=== PATIENT | male | born 1960 | race Caucasian/White ===

== ENCOUNTER 2020-08-25 17:55 | Inpatient (IN) | payer MEDICARE, MEDICAID, SELFPAY ==
[2020-08-25] VITALS (7 sets, daily range): BP systolic 156–169; BP diastolic 69–100; PULSE 79–112; RESP 16–22; TEMP 36.4–36.8; O2SAT 96–100; BMI 29.7
--- NOTE | 2020-08-25 18:10 | ED_ITS ---
HPI - Abdominal Pain General: Chief Complaint: Abdominal Pain Stated Complaint: ABD PAIN Time Seen by Provider: 08/25/20 17:57 Source: patient and EMS Mode of arrival: EMS Limitations: no limitations History of Present Illness: HPI narrative: Patient is a 60-year-old male who presents to ED today with a complaint of epigastric and left upper quadrant abdominal pain. Patient tells me he has chronic left upper quadrant abdominal pain-has had a very extensive work up for this and told it was his gallbladder. He reports a previous episode of pancreatitis in 2005 that he reports was from Seroquel use. He tells me last week he had 2 episodes of fairly severe left upper quadrant pain that resolved back down to his baseline pain without intervention. He tells me today however pain returned and was severe prompting him to seek medical evaluation. He has had one episode of non-bloody emesis this morning. He is complaining of loose steatorrhea stools. No fevers. He admittingly has been taking a large amount of Aleve over the past week for arthritis. MD elicited complaint: abdominal pain Pertinent past history: other (pancreatitis ) Onset (ago): hour(s) Pain Consistency: constant Location: Epigastric and LUQ Severity: severe Quality: stabbing and sharp Radiation: none Migration to: no migration Relieving factors: nothing Associated Symptoms: Reports diarrhea, nausea and vomiting; Denies bloating, chills, constipation, dysuria, fever(s), hematochezia, hematemesis, fecal incontinence, melena and syncope Review of Systems Const: Denies: fever(s), chills, body aches, fatigue or malaise ENMT: Denies: throat pain or odynophagia Card: Denies: chest pain, palpitations, irregular heart rhythm, edema, swelling of feet/ankles, lightheadedness, syncope, pre-syncope or dyspnea on exertion Resp: Denies: dyspnea GI: Reports: abdominal pain, nausea, vomiting, diarrhea and steatorrhea; Denies: hematemesis, constipation, bloating, fecal incontinence, pain on defecation, rectal pain, rectal swelling, hematochezia, melena or white/light colored stool : Denies: flank pain, difficulty urinating, dysuria, urinary frequency, urinary urgency or urinary hesitancy Musc: Denies: neck pain or back pain Skin/Breast: Denies: rash Neuro: Denies: headache(s) Physical Exam Const: COMMON NORMALS: no acute distress, patient oriented x3, no limitations and alert GENERAL APPEARANCE: cooperative and disheveled ORIENTATION/CONSCIOUSNESS: Yes awake, Yes oriented to person, Yes oriented to place and Yes oriented to time HENMT: COMMON NORMALS: normocephalic and atraumatic HEAD & SCALP: normocephalic and atraumatic Resp: COMMON NORMALS: normal respiratory effort and clear to auscultation bilaterally AUSCULTATION: clear to auscultation bilaterally Cardio: COMMON NORMALS: regular rate and regular rhythm RATE: regular rate RHYTHM: regular rhythm GI: COMMON NORMALS: Normal to inspection, nondistended, normoactive bowel sounds present, Soft to palpation, No hepatosplenomegaly present and no masses INSPECTION: Yes normal to inspection AUSCULTATION: Yes normoactive bowel sounds PALPATION: Yes Soft to palpation, Yes Tenderness to palpation present (GI) (epigastric/LUQ) and Yes No hepatosplenomegaly present : COMMON NORMALS: Yes no CVA tenderness BLADDER/KIDNEY EXAM: Yes no CVA tenderness Back/Pelvis: COMMON NORMALS: no CVA tenderness Extremity: COMMON NORMALS: no pedal edema Neuro: COMMON NORMALS: patient oriented x3 SENSORIUM/ORIENTATION: Yes alert, Yes oriented to person, Yes oriented to place and Yes oriented to time Skin: COMMON NORMALS: no rashes or lesions noted GENERAL SKIN EXAM: no rashes or lesions noted Course Consultations: Consultation #1: Dr. Chapman-accepts admission Vital Signs: Vital signs: Vital Signs Temperature 97.5 F L 08/25/20 17:58 Pulse Rate 89 08/25/20 20:09 Respiratory Rate 21 H 08/25/20 20:10 Blood Pressure 168/100 08/25/20 20:09 Pulse Oximetry 99 08/25/20 20:10 MDM - Abdominal Pain MDM Narrative: Medical decision making narrative: Patient was given 100mcg fentanyl in route and has had 8mg of morphine here and pain is still quite uncomfortable. He does not feel like this could be managed adequately at home. Patient does have acute pancreatitis. Lipase is 2150. No significant changes to his LFTs. No mass or pseudocyst on CT. I spoke to Dr. Chapman who will accept patient. Dr. Pack will place admit orders. Lab Data: Labs: Lab Results 08/25/20 08/25/20 08/25/20 Range/Units 18:36 18:36 18:36 WBC 18.1 H (4.0-10.0) 10^3/ uL RBC 5.67 H (4.1-5.3) 10^6/u L Hgb 15.4 (11.7-16.6) g/dL Hct 46.4 (42.0-52.0) % MCV 81.8 (80-94) fL MCH 27.2 L (28.0-34.0) pg MCHC 33.2 (30.0-36.0) g/dL RDW 12.8 (12.1-15.1) % Plt Count 315 (130-400) 10^3/c mm MPV 11.6 H (7.4-10.4) fL Neut % (Auto) 87.4 % Lymph % (Auto) 5.4 % [place] % (Auto) 5.6 % Eos % (Auto) 0.9 % Baso % (Auto) 0.3 % Neut # (Auto) 15.85 H (1.8-7.7) 10^3/u L Lymph # (Auto) 1.0 (0.8-4.8) 10^3/u L [place] # (Auto) 1.0 H (0.2-0.9) 10^3/u L Eos # (Auto) 0.2 (0.0-0.8) 10^3/u L Baso # (Auto) 0.1 (0.0-0.1) 10^3/u L Nucleated RBC % (a uto) 0 % Nucleated RBCs # 0.0 /100WBC Sodium 135 L (136-145) mmol/L Potassium 4.5 (3.5-5.1) mmol/L Chloride 100 (98-107) mmol/L Carbon Dioxide 22 (22-29) mmol/L Anion Gap 17.5 (5-19) BUN 16 (6-20) mg/dL Creatinine 0.7 (0.7-1.2) mg/dL GFR Calculation 115.4 (90-130) mL/min Glucose 237 H (65-115) mg/dL Calculated Osmolal ity 289 (285-295) mOsm/k g Calcium 9.6 (8.5-10.5) mg/dL Total Bilirubin 0.6 (0.15-1.2) mg/dL AST 35 (0-40) U/L ALT 42 H (0-41) U/L Alkaline Phosphata se 68 (40-130) IU/L Total Protein 7.7 (6.6-8.7) g/dL Albumin 4.8 (3.5-5.2) g/dL Globulin 2.9 (1.3-4.6) g/dL Lipase 2150 H (13-60) U/L Urine Color Yellow (Yellow) Urine Appearance Clear (CLEAR) Urine pH 5 (5-7) Ur Specific Gravit y 1.025 (1.005-1.030) Urine Protein Trace (Negative) Urine Glucose (UA) 4+ H (Normal) Urine Ketones 2+ H (Negative) Urine Blood Neg (Negative) Urine Nitrate Negative (Negative) Urine Bilirubin 1+ H (Negative) Urine Urobilinogen 1 H (Negative) mg/dL Ur Leukocyte [place] ase Negative (Negative) Urine RBC 0-4 H (0-2) /hpf Urine WBC 0-4 H (0-5) /hpf Ur Squamous Epith Cells 0-4 H (0-5) /hpf Amorphous Sediment Not Reportable Urine Bacteria Trace (NONE) /hpf Hyaline Casts 0-4 H /lpf Urine Mucus 1+ /hpf Imaging Data ^: CT Abd/Pel: Radiologist's impression: [address] [address] [address] Scan Report Signed Patient: FIDEL RENDON Unit #: [id number] : 1960 Age/Sex: 60 / M ADM Date: Loc: ER Room/Bed: Attending Dr: Ordering Provider/Ordering MD: Julia Sims Date of Service: 08/25/20 Procedure(s): CT abdomen pelvis w con* [id number] Accession Number(s): [id number] Report Number: [id number] PROCEDURE INFORMATION: Exam: CT Abdomen And Pelvis With Contrast Exam date and time: 08/25/2020 7:25 PM Age: 60 years old Clinical indication: Abdominal pain; Additional info: Upper abdominal pain/pancreatitis x 2 days TECHNIQUE: Imaging protocol: Computed tomography of the abdomen and pelvis with contrast. Radiation optimization: All CT scans at this facility use at least one of these dose optimization techniques: automated exposure control; mA and/or kV adjustment per patient size (includes targeted exams where dose is matched to clinical indication); or iterative reconstruction. Contrast material: OMNI 300; Contrast volume: 95 ml; Contrast route: INTRAVENOUS (IV); COMPARISON: No relevant prior studies available. RADIATION DOSE METRICS: Total DLP (mGy-cm): 1758.94 FINDINGS: Liver: Mild hepatic steatosis. No focal liver mass. Gallbladder and bile ducts: Normal. No calcified stones. No ductal dilation. Pancreas: Free fluid around the pancreas. No loculated pancreatic pseudocyst. No pancreatic ductal dilation. No focal pancreatic mass. Spleen: Normal. No splenomegaly. Adrenal glands: Normal. No mass. Kidneys and ureters: Multiple small incidental bilateral renal simple cortical cyst. Negative for hydronephrosis. Stomach and bowel: Unremarkable. No obstruction. No mucosal thickening. Appendix: No evidence of appendicitis. Intraperitoneal space: Unremarkable. No free air. No significant fluid collection. Vasculature: Unremarkable. No abdominal aortic aneurysm. Lymph nodes: Unremarkable. No enlarged lymph nodes. Urinary bladder: Unremarkable as visualized. Reproductive: Mild prostate gland enlargement. Bones/joints: Bilateral L5 pars defects. Grade 1 L5-S1 spondylolisthesis. Severe L5-S1 disc disease. No vertebral body height loss. Soft tissues: Unremarkable. CT/CT abdomen pelvis w con* [id number] IMPRESSION: Positive for acute pancreatitis changes. COMMENTS: Consistent with the [place] [employer]'s Incidental Findings Committee white paper (J Am Lesley Radiol 2018): Any incidental renal lesion less than 1 cm or classified as too small to characterize, or any incidental cystic renal lesion characterized as simple-appearing, is likely benign. No follow-up imaging is recommended for these lesions per consensus recommendations based on imaging criteria. Radiation Dose CTDIVOL = (mGy): DLP = 1758.94 (mGy-cm) Dictated By: Blas Duggan Signed By: Blas Duggan Signed Date/Time: 08/25/201956 DD/ 55 Discharge Plan Discharge Patient Disposition: Admitted As Inpatient Clinical Impression: Acute pancreatitis Condition: Stable Coding Level of Care Code ED Manager Lean for Chg Fwd Exam Comprehensive
[2020-08-25] MEDS: lidocaine 2% viscous 15 ML, aluminum-mag hydrox-simethicon 30 ML, sucralfate oral liq 1 GM PO (18:35)
[2020-08-25] MEDS: morphine 4 mg/mL SDV 1 mL IVP ×2 (18:35→20:10)
[2020-08-25 18:47] LABS: Basophils # 0.1 10^3/uL (0.0-0.1); Basophils % 0.3 %; Eosinophils # 0.2 10^3/uL (0.0-0.8); Eosinophils % 0.9 %; Hematocrit 46.4 % (42.0-52.0); Hemoglobin 15.4 g/dL (11.7-16.6); Lymphocytes % 5.4 %; Mean Corpuscular HGB Conc 33.2 g/dL (30.0-36.0); Mean Corpuscular Hemoglobin 27.2 pg (28.0-34.0); Mean Corpuscular Volume 81.8 fL (80-94); Mean Platelet Volume 11.6 fL (7.4-10.4); Monocytes % 5.6 %; Neutrophils # 15.85 10^3/uL (1.8-7.7); Neutrophils % 87.4 %; Nucleated Red Blood Cells % 0 %; Platelet Count 315 10^3/cmm (130-400); Red Blood Count 5.67 10^6/uL (4.1-5.3); Red Cell Distribution Width 12.8 % (12.1-15.1); White Blood Count 18.1 10^3/uL (4.0-10.0)
[2020-08-25 19:07] LABS: Alanine Aminotransferase 42 U/L (0-41); Albumin Level 4.8 g/dL (3.5-5.2); Alkaline Phosphatase 68 IU/L (40-130); Blood Urea Nitrogen 16 mg/dL (6-20); Calcium 9.6 mg/dL (8.5-10.5); Carbon Dioxide 22 mmol/L (22-29); Chloride 100 mmol/L (98-107); Globulin 2.9 g/dL (1.3-4.6); Glomerular Filtration Rate 115.4 mL/min (90-130); Glucose 237 mg/dL (65-115); Osmolality Calculated 289 mOsm/kg (285-295); Sodium 135 mmol/L (136-145); Total Bilirubin 0.6 mg/dL (0.15-1.2); Total Protein 7.7 g/dL (6.6-8.7)
[2020-08-25 19:10] LABS: Anion Gap 17.5 (5-19); Potassium 4.5 mmol/L (3.5-5.1)
--- NOTE | 2020-08-25 19:10 | PC.NURSE ---
report received from MAXWELL Alcazar and care transferred to MAXWELL Kingsley
[2020-08-25 19:11] LABS: Aspartate Amino Transferase 35 U/L (0-40)
[2020-08-25 19:16] LABS: Lipase 2150 U/L (13-60)
--- NOTE | 2020-08-25 19:23 | CTR_ITS ---
PROCEDURE INFORMATION: Exam: CT Abdomen And Pelvis With Contrast Exam date and time: 08/25/2020 7:25 PM Age: 60 years old Clinical indication: Abdominal pain; Additional info: Upper abdominal pain/pancreatitis x 2 days TECHNIQUE: Imaging protocol: Computed tomography of the abdomen and pelvis with contrast. Radiation optimization: All CT scans at this facility use at least one of these dose optimization techniques: automated exposure control; mA and/or kV adjustment per patient size (includes targeted exams where dose is matched to clinical indication); or iterative reconstruction. Contrast material: OMNI 300; Contrast volume: 95 ml; Contrast route: INTRAVENOUS (IV); COMPARISON: No relevant prior studies available. RADIATION DOSE METRICS: Total DLP (mGy-cm): 1758.94 FINDINGS: Liver: Mild hepatic steatosis. No focal liver mass. Gallbladder and bile ducts: Normal. No calcified stones. No ductal dilation. Pancreas: Free fluid around the pancreas. No loculated pancreatic pseudocyst. No pancreatic ductal dilation. No focal pancreatic mass. Spleen: Normal. No splenomegaly. Adrenal glands: Normal. No mass. Kidneys and ureters: Multiple small incidental bilateral renal simple cortical cyst. Negative for hydronephrosis. Stomach and bowel: Unremarkable. No obstruction. No mucosal thickening. Appendix: No evidence of appendicitis. Intraperitoneal space: Unremarkable. No free air. No significant fluid collection. Vasculature: Unremarkable. No abdominal aortic aneurysm. Lymph nodes: Unremarkable. No enlarged lymph nodes. Urinary bladder: Unremarkable as visualized. Reproductive: Mild prostate gland enlargement. Bones/joints: Bilateral L5 pars defects. Grade 1 L5-S1 spondylolisthesis. Severe L5-S1 disc disease. No vertebral body height loss. Soft tissues: Unremarkable. CT/CT abdomen pelvis w con* [id number] IMPRESSION: Positive for acute pancreatitis changes. COMMENTS: Consistent with the [employer]'s Incidental Findings Committee white paper (J Am Lesley Radiol 2018): Any incidental renal lesion less than 1 cm or classified as too small to characterize, or any incidental cystic renal lesion characterized as simple-appearing, is likely benign. No follow-up imaging is recommended for these lesions per consensus recommendations based on imaging criteria. Radiation Dose CTDIVOL = (mGy): DLP = 1758.94 (mGy-cm)
[2020-08-25 19:27] LABS: Add Urine Microscopic? YES; Bilirubin Urine 1+ (Negative); Blood Urine Neg (Negative); Glucose Urine UA 4+ (Normal); Ketones Urine 2+ (Negative); Leukocyte Esterase Urine Negative (Negative); Nitrate Urine Negative (Negative); Protein Urine Trace (Negative); RBC Urine 0-4 /hpf (0-2); Specific Gravity, Urine 1.025 (1.005-1.030); Squamous Epithelial Cell Urine 0-4 /hpf (0-5); Urine Appearance Clear (CLEAR); Urine Color Yellow (Yellow); Urobilinogen Urine 1 mg/dL (Negative); WBC Urine 0-4 /hpf (0-5); pH Urine 5 (5-7)
[2020-08-25 19:28] LABS: Bacteria Urine TRACE /hpf; Hyaline Casts Urine 0-4 /lpf; Mucus Urine 1+ /hpf
[2020-08-25] MEDS: iohexol 300 mg/mL 100 mL Btl IV (19:38)
--- NOTE | 2020-08-25 21:06 | PM.HP ---
Providers/Chief Complaint Chief Complaint: ABD PAIN History of Present Illness FIDEL RENDON is a 60 year old male with past medical history of diabetes, hypertension, COPD, BPH, dyslipidemia who presents with complaints of left upper quadrant and epigastric abdominal pain which started 2 to 3 days ago initially mild, progressively got worse and currently is severe. Constant. No modifying factors. Reports similar in the past. In 2009 he was diagnosed with acute pancreatitis when presented with similar symptoms. He denies any new medications recently. He denies alcohol. He reports that his diabetes control has improved recently. Reports nausea and one episode of vomiting. No hematemesis. Denies rectal blood. He reports that his stool is kind of oily. Denies fever or chills. His temperature was about 98 earlier today. Reports chronic cough and wheezes. No shortness of breath or mucus production. No chest pain. Review of Systems General: Reports: 10 or more systems reviewed and unremarkable except in HPI and below Medications/Allergies Home Medications Medication Instructions Recorded Confirmed Last Taken Type albuterol sulfate [Ventolin HFA] See Rx Instructions .ROUTE .COMPLEX 08/25/20 08/25/20 Unknown History atorvastatin 40 mg PO DAILY 08/25/20 08/25/20 08/25/20 History baclofen 20 mg PO TID PRN 08/25/20 08/25/20 08/25/20 History budesonide-formoterol [Symbicort] See Rx Instructions .ROUTE .COMPLEX 08/25/20 08/25/20 Unknown History buspirone 15 mg PO BID 08/25/20 08/25/20 08/25/20 History diclofenac sodium 75 mg PO BID 08/25/20 08/25/20 08/25/20 History fenofibrate nanocrystallized 145 mg PO DAILY 08/25/20 08/25/20 08/25/20 History gabapentin 400 mg PO BID 08/25/20 08/25/20 08/25/20 History glipizide 5 mg PO TID 08/25/20 08/25/20 08/25/20 History metformin 500 mg PO BID 08/25/20 08/25/20 08/25/20 History mirtazapine 7.5 mg PO DAILY 08/25/20 08/25/20 08/25/20 History omeprazole 20 mg PO DAILY 08/25/20 08/25/20 08/25/20 History prazosin 2 mg PO DAILY 08/25/20 08/25/20 08/25/20 History prazosin 10 mg PO DAILY 08/25/20 08/25/20 08/25/20 History ramelteon 8 mg PO DAILY 08/25/20 08/25/20 08/25/20 History tamsulosin 0.4 mg PO DAILY 08/25/20 08/25/20 08/24/20 History Allergies Allergy/AdvReac Type Severity Reaction Status Date / Time No Known Allergies Allergy Verified 08/25/20 18:07 Vitals/I&O/Wt Last Vital Signs Temp 97.5 F L 08/25/20 17:58 Pulse 89 08/25/20 20:09 Resp 21 H 08/25/20 20:10 BP 168/100 08/25/20 20:09 Pulse Ox 99 08/25/20 20:10 Weight last 48 hrs Weight 91.172 kg Physical Exam Narrative: EXAM NARRATIVE: Awake alert oriented. In moderate distress secondary to abdominal pain. Skin is warm and dry. Dry mucous membranes Eyes PERRL, extraocular muscle intact. No icterus Neck supple. No JVD Normal speech Lungs. Bilateral coarse breath sounds and wheezes. No crackles. No respiratory distress Heart S1, S2, regular Abdomen soft, tender in the left upper quadrant without rebound bowel sounds are present no guarding. Extremities no edema cyanosis or calf tenderness bilaterally Neuro examination is nonfocal. Data : 08/25/20 18:36 08/25/20 18:36 Other Labs: Laboratory Results WBC 18.1 10^3/uL (4.0-10.0) H 08/25/20 18:36 RBC 5.67 10^6/uL (4.1-5.3) H 08/25/20 18:36 Hgb 15.4 g/dL (11.7-16.6) 08/25/20 18:36 Hct 46.4 % (42.0-52.0) 08/25/20 18:36 MCV 81.8 fL (80-94) 08/25/20 18:36 MCH 27.2 pg (28.0-34.0) L 08/25/20 18:36 MCHC 33.2 g/dL (30.0-36.0) 08/25/20 18:36 RDW 12.8 % (12.1-15.1) 08/25/20 18:36 Plt Count 315 10^3/cmm (130-400) 08/25/20 18:36 MPV 11.6 fL (7.4-10.4) H 08/25/20 18:36 Neut % (Auto) 87.4 % 08/25/20 18:36 Lymph % (Auto) 5.4 % 08/25/20 18:36 [place] % (Auto) 5.6 % 08/25/20 18:36 Eos % (Auto) 0.9 % 08/25/20 18:36 Baso % (Auto) 0.3 % 08/25/20 18:36 Neut # (Auto) 15.85 10^3/uL (1.8-7.7) H 08/25/20 18:36 Lymph # (Auto) 1.0 10^3/uL (0.8-4.8) 08/25/20 18:36 [place] # (Auto) 1.0 10^3/uL (0.2-0.9) H 08/25/20 18:36 Eos # (Auto) 0.2 10^3/uL (0.0-0.8) 08/25/20 18:36 Baso # (Auto) 0.1 10^3/uL (0.0-0.1) 08/25/20 18:36 Nucleated RBC % (auto) 0 % 08/25/20 18:36 Nucleated RBCs # 0.0 /100WBC 08/25/20 18:36 Sodium 135 mmol/L (136-145) L 08/25/20 18:36 Potassium 4.5 mmol/L (3.5-5.1) 08/25/20 18:36 Chloride 100 mmol/L (98-107) 08/25/20 18:36 Carbon Dioxide 22 mmol/L (22-29) 08/25/20 18:36 Anion Gap 17.5 (5-19) 08/25/20 18:36 BUN 16 mg/dL (6-20) 08/25/20 18:36 Creatinine 0.7 mg/dL (0.7-1.2) 08/25/20 18:36 GFR Calculation 115.4 mL/min (90-130) 08/25/20 18:36 Glucose 237 mg/dL (65-115) H 08/25/20 18:36 Calculated Osmolality 289 mOsm/kg (285-295) 08/25/20 18:36 Calcium 9.6 mg/dL (8.5-10.5) 08/25/20 18:36 Total Bilirubin 0.6 mg/dL (0.15-1.2) 08/25/20 18:36 AST 35 U/L (0-40) 08/25/20 18:36 ALT 42 U/L (0-41) H 08/25/20 18:36 Alkaline Phosphatase 68 IU/L (40-130) 08/25/20 18:36 Total Protein 7.7 g/dL (6.6-8.7) 08/25/20 18:36 Albumin 4.8 g/dL (3.5-5.2) 08/25/20 18:36 Globulin 2.9 g/dL (1.3-4.6) 08/25/20 18:36 Lipase 2150 U/L (13-60) H 08/25/20 18:36 Urine Color Yellow (Yellow) 08/25/20 18:36 Urine Appearance Clear (CLEAR) 08/25/20 18:36 Urine pH 5 (5-7) 08/25/20 18:36 Ur Specific [place] 1.025 (1.005-1.030) 08/25/20 18:36 Urine Protein Trace (Negative) 08/25/20 18:36 Urine Glucose (UA) 4+ (Normal) H 08/25/20 18:36 Urine Ketones 2+ (Negative) H 08/25/20 18:36 Urine Blood Neg (Negative) 08/25/20 18:36 Urine Nitrate Negative (Negative) 08/25/20 18:36 Urine Bilirubin 1+ (Negative) H 08/25/20 18:36 Urine Urobilinogen 1 mg/dL (Negative) H 08/25/20 18:36 Ur Leukocyte Esterase Negative (Negative) 08/25/20 18:36 Urine RBC 0-4 /hpf (0-2) H 08/25/20 18:36 Urine WBC 0-4 /hpf (0-5) H 08/25/20 18:36 Ur Squamous Epith Cells 0-4 /hpf (0-5) H 08/25/20 18:36 Amorphous Sediment Not Reportable 08/25/20 18:36 Urine Bacteria Trace /hpf (NONE) 08/25/20 18:36 Hyaline Casts 0-4 /lpf H 08/25/20 18:36 Urine Mucus 1+ /hpf 08/25/20 18:36 Impressions Abdomen/Pelvis CT 08/25/20 19:23 IMPRESSION: Positive for acute pancreatitis changes. COMMENTS: Consistent with the [place] [employer]'s Incidental Findings Committee white paper (J Am Lesley Radiol 2018): Any incidental renal lesion less than 1 cm or classified as too small to characterize, or any incidental cystic renal lesion characterized as simple-appearing, is likely benign. No follow-up imaging is recommended for these lesions per consensus recommendations based on imaging criteria. Radiation Dose CTDIVOL = (mGy): DLP = 1758.94 (mGy-cm) A&P Additional A&P Information Acute pancreatitis. Does not seem to be related to gallbladder disease. Normal LFTs and normal CT appearance of the biliary system. Calcium was normal. Denies alcohol. Could be hypertriglyceridemia. We will check his fasting lipids in the morning. He will be n.p.o., will receive IV fluids, pain medications. Will monitor and replace electrolytes. We will monitor his labs including lipase. Leukocytosis. Most likely related to acute pancreatitis and associated inflammatory response. A febrile. We will check his procalcitonin in the morning. No antibiotics at this time. Hypertension. Will order as needed labetalol. We will resume his home medications when the med rec is complete. Diabetes. Since he is n.p.o. I will cover him with insulin sliding scale. We will hold his home oral medications. DVT prophylaxis. High risk for DVT. Lovenox. CODE STATUS. He wants to be full code. The plan of care was discussed with the patient. He verbalized understanding and agreement. Attestations Medical Necessity Statement*: observation Coding Level of Care Code Acute Inventory Management Specialist for Toño Adkins
[2020-08-25 21:13] LABS: Glucose Point of Care 226 mg/dL (70-110)
[2020-08-25] MEDS: enoxaparin 40 mg/0.4 mL Syringe SUBCUT (21:27)
[2020-08-25] MEDS: famotidine 20 mg/2 mL INJ IVP (21:36)
[2020-08-25] MEDS: lactated ringers 1,000 ML 150 ML IV (22:13)
[2020-08-26] VITALS (9 sets, daily range): BP systolic 132–164; BP diastolic 69–95; PULSE 101–115; RESP 17–18; TEMP 36.6–37.3; O2SAT 95–97
[2020-08-26] MEDS: ondansetron 2 mg/ML SDV 2 mL 4 MG IVP (00:38)
[2020-08-26] MEDS: sodium chloride 0.9% 1,000 ML 125 ML IV (00:44)
[2020-08-26 01:15] LABS: Glucose Point of Care 185 mg/dL (70-110)
[2020-08-26] MEDS: HYDROmorphone 1 mg/mL INJ 1 mL 0.5 MG IVP ×3 (01:22→20:03)
[2020-08-26 04:16] LABS: Glucose Point of Care 214 mg/dL (70-110)
[2020-08-26] MEDS: lactated ringers 1,000 ML 150 ML IV ×2 (04:59→16:52)
[2020-08-26 06:17] LABS: Basophils % 0.2 %; Eosinophils % 0.2 %; Hematocrit 44.5 % (42.0-52.0); Hemoglobin 14.7 g/dL (11.7-16.6); Lymphocytes # 0.9 10^3/uL (0.8-4.8); Mean Corpuscular Hemoglobin 27.4 pg (28.0-34.0); Mean Corpuscular Volume 82.9 fL (80-94); Mean Platelet Volume 11.8 fL (7.4-10.4); Monocytes % 5.5 %; Neutrophils # 15.47 10^3/uL (1.8-7.7); Neutrophils % 88.7 %; Nucleated Red Blood Cells % 0 %; Platelet Count 284 10^3/cmm (130-400); Red Blood Count 5.37 10^6/uL (4.1-5.3); Red Cell Distribution Width 13.1 % (12.1-15.1); White Blood Count 17.4 10^3/uL (4.0-10.0)
[2020-08-26 07:00] LABS: Alanine Aminotransferase 32 U/L (0-41); Albumin Level 4.1 g/dL (3.5-5.2); Alkaline Phosphatase 58 IU/L (40-130); Anion Gap 18.2 (5-19); Aspartate Amino Transferase 26 U/L (0-40); Blood Urea Nitrogen 16 mg/dL (6-20); Calcium 8.6 mg/dL (8.5-10.5); Carbon Dioxide 19 mmol/L (22-29); Chloride 98 mmol/L (98-107); Cholesterol 117 mg/dL (0-200); Globulin 2.4 g/dL (1.3-4.6); Glomerular Filtration Rate 115.4 mL/min (90-130); Glucose 181 mg/dL (65-115); HDL Cholesterol 39 mg/dL (60-100); LDL Cholesterol Calculated 56 mg/dL (50-129); LDL HDL Ratio 1.44 RATIO (0.00-3.22); Magnesium 1.5 mg/dL (1.7-2.3); Osmolality Calculated 278 mOsm/kg (285-295); Phosphorus 1.9 mg/dL (2.5-4.5); Potassium 4.2 mmol/L (3.5-5.1); Sodium 131 mmol/L (136-145); Total Bilirubin 0.6 mg/dL (0.15-1.2); Total Protein 6.5 g/dL (6.6-8.7); Triglycerides 110 mg/dL (0-150)
[2020-08-26 07:09] LABS: Lipase 946 U/L (13-60)
[2020-08-26] MEDS: famotidine 20 mg/2 mL INJ IVP ×2 (08:26→20:53)
--- NOTE | 2020-08-26 16:12 | PM.PN ---
Subjective Subjective: Interval history: Pulmonary last night. Incalculable. Examination patient lying in bed. Complaining of pain in epigastric area going to back. Of complaining of frequent cramps in his calf muscles, arch of feet. States cramping is normal for him for which he takes baclofen. Denies any headache. Complaining of one episode of nausea and vomiting. Denies feeling hungry. States he has had pancreatitis multiple times in the past. Vitals/I&O/Wt Last Vital Signs Temp 99.1 F 08/26/20 15:19 Pulse 115 H 08/26/20 15:19 Resp 18 08/26/20 15:19 BP 132/86 08/26/20 15:19 Pulse Ox 97 08/26/20 15:19 08/26/20 08/26/20 08/26/20 06:59 14:59 22:59 Intake Total 1999 Balance 1999 Weight last 48 hrs Weight 91.172 kg Physical Exam Narrative: EXAM NARRATIVE: Awake alert oriented. In moderate distress secondary to abdominal pain. Skin is warm and dry. Dry mucous membranes Eyes PERRL, extraocular muscle intact. No icterus Neck supple. No JVD Normal speech Lungs. Bilateral coarse breath sounds and wheezes. No crackles. No respiratory distress Heart S1, S2, regular Abdomen soft, tender in the left upper quadrant without rebound bowel sounds are present no guarding, bowel sounds present and sluggish. Extremities no edema cyanosis or calf tenderness bilaterally Neuro examination is nonfocal. Data : 08/26/20 04:55 08/26/20 04:55 A&P Additional A&P Information Acute pancreatitis: History of multiple pancreatitis in the past. Does not seem to be related to gallbladder disease. Normal LFTs and normal CT appearance of the biliary system. Calcium was normal. Denies alcohol. Triglyceride levels normal. Add alcohol level and drug screen to do samples from ER. Keep NPO. Continue IV fluids at 150 cc/h. Replace electrolytes as needed. Dilaudid 0.5 mg every 4 hours as needed for pain. Leukocytosis:Most likely related to acute pancreatitis and associated inflammatory response. A febrile. Pro-Maged negative. For now continue to hold off on antibiotics. Continue other chronic oral oral medications including mirtazapine, baclofen as needed, BuSpar, tamsulosin. Hypertension: Goal for goal blood pressure less than 140/90 mmHg. Continue prazosin. Diabetes. Since he is n.p.o. I will cover him with insulin sliding scale every 6 hours. We will hold his home oral medications. DVT prophylaxis. High risk for DVT. Lovenox. NPO. CODE STATUS. He wants to be full code. The plan of care was discussed with the patient. He verbalized understanding and agreement. Attestations Medical Necessity Statement*: Requires further hospitalization for management of acute pancreatitis as patient is unable to tolerate oral diet. Time Spent in Patient Care: Greater than 35 minutes (>than 50% of time spent in counselling and/or direct pt care on unit). Coding Level of Care Code Acute [employer] [place] Former for Toño Adkins
[2020-08-26 16:19] LABS: Amphetamines Screen Urine Negative (Negative); Barbiturates Screen Urine Negative (Negative); Benzodiazepines Screen Urine Negative (Negative); Cocaine Screen Urine Negative (Negative); Opiate Screen Urine Negative (Negative); PCP Screen Urine Negative (Negative); THC Screen Urine Positive (Negative)
[2020-08-26 16:30] LABS: Alcohol Level < 10 mg/dL (0-10)
[2020-08-26 16:46] LABS: Glucose Point of Care 230 mg/dL (70-110)
[2020-08-26] MEDS: magnesium sulfate premix 2 GM/50 ML PIGGYBACK IV (16:52)
[2020-08-26] MEDS: BuSPIRONE 10 mg Tablet PO (18:32)
[2020-08-26] MEDS: gabapentin 400 mg Capsule PO (18:33)
[2020-08-26 20:54] LABS: Glucose Point of Care 180 mg/dL (70-110)
[2020-08-26] MEDS: enoxaparin 40 mg/0.4 mL Syringe SUBCUT (21:42)
[2020-08-27] VITALS (10 sets, daily range): BP systolic 114–149; BP diastolic 62–85; PULSE 97–107; RESP 18–20; TEMP 36.6–38.4; O2SAT 94–98
[2020-08-27] MEDS: lactated ringers 1,000 ML 150 ML IV ×2 (00:49→18:56)
[2020-08-27 01:02] LABS: Glucose Point of Care 163 mg/dL (70-110)
[2020-08-27] MEDS: HYDROmorphone 1 mg/mL INJ 1 mL 0.5 MG IVP ×3 (01:04→18:59)
[2020-08-27 03:14] LABS: Glucose Point of Care 180 mg/dL (70-110)
[2020-08-27] MEDS: ondansetron 2 mg/ML SDV 2 mL 4 MG IVP ×2 (04:23→18:59)
[2020-08-27 06:12] LABS: Basophils # 0.1 10^3/uL (0.0-0.1); Basophils % 0.3 %; Eosinophils # 0.1 10^3/uL (0.0-0.8); Eosinophils % 0.6 %; Hematocrit 47.4 % (42.0-52.0); Hemoglobin 14.2 g/dL (11.7-16.6); Lymphocytes # 1.3 10^3/uL (0.8-4.8); Lymphocytes % 6.6 %; Mean Corpuscular Hemoglobin 27.3 pg (28.0-34.0); Mean Platelet Volume 10.9 fL (7.4-10.4); Monocytes # 1.2 10^3/uL (0.2-0.9); Monocytes % 6.3 %; Neutrophils # 16.46 10^3/uL (1.8-7.7); Neutrophils % 85.6 %; Nucleated Red Blood Cells % 0 %; Platelet Count 247 10^3/cmm (130-400); Red Blood Count 5.21 10^6/uL (4.1-5.3); Red Cell Distribution Width 13.2 % (12.1-15.1); White Blood Count 19.2 10^3/uL (4.0-10.0)
[2020-08-27 06:36] LABS: Alanine Aminotransferase 22 U/L (0-41); Albumin Level 3.7 g/dL (3.5-5.2); Alkaline Phosphatase 67 IU/L (40-130); Anion Gap 17.3 (5-19); Aspartate Amino Transferase 17 U/L (0-40); Blood Urea Nitrogen 16 mg/dL (6-20); Calcium 8.4 mg/dL (8.5-10.5); Carbon Dioxide 19 mmol/L (22-29); Chloride 101 mmol/L (98-107); Globulin 2.8 g/dL (1.3-4.6); Glomerular Filtration Rate 115.4 mL/min (90-130); Glucose 162 mg/dL (65-115); Osmolality Calculated 281 mOsm/kg (285-295); Potassium 4.3 mmol/L (3.5-5.1); Sodium 133 mmol/L (136-145); Total Bilirubin 0.6 mg/dL (0.15-1.2); Total Protein 6.5 g/dL (6.6-8.7)
[2020-08-27] MEDS: BuSPIRONE 10 mg Tablet PO ×2 (09:26→19:06)
[2020-08-27] MEDS: famotidine 20 mg/2 mL INJ IVP ×2 (09:26→21:17)
[2020-08-27] MEDS: gabapentin 400 mg Capsule PO ×2 (09:26→19:06)
[2020-08-27] MEDS: tamsulosin 0.4 mg Capsule PO (09:26)
[2020-08-27] MEDS: mirtazapine 15 mg Tablet 7.5 MG PO (09:27)
[2020-08-27 10:26] LABS: Glucose Point of Care 195 mg/dL (70-110)
--- NOTE | 2020-08-27 10:54 | PC.CHAP ---
Pastoral Care Encounter/Spiritual Assessment Type of Contact [] Declined or manager visit [] Patient/Family/Request visit [] Outpatient visit [] Follow-up visit [] Physician referral [] Code/Alert [x] Routine visit [] Staff referral [] Actively dying [] Patient sleeping [] Family support [] [] Out of room [] Palliative care [] [x] Receiving care in room [] Pre-surgical visit [] Trauma [] Long length of stay [] ICU visit [] Other: Relational/Emotional Strength [] Patient feels connected with others/family/visitors/staff [x] Distress [] Loneliness/isolation [] Abandonment Spirituality of Patient [x] Person of Arabella [] Attends Spiritism of their Arabella [x] Believes in Prayer [] Reads Bible or Yazdanism materials [] There are Spiritual issues to be addressed Rim Technician Interventions [x] Prayer [x] Active listening [x] Non-anxious presence [x] Spiritual/emotional support [] Crisis/trauma care [x] Spiritual counseling [] Bereavement support [] Provided bereavement packet [] Provided Bible/devotional materials [] Provided toy/stuffed animal, coloring book to patient or family member [] Provided Communion [] Anointing/[place] [] Salvation [x] Completed spiritual assessment [] Other: Impact on Illness or Injury [] Angry [x] Fearful [] Anxious [] Often cries [] Exhaustion [] Unable to work [] Unable to attend mandaen [] Unable to walk/stand [] Unable to read [] Unable to drive [] Unable to eat/drink [] Unable to sleep [] Unable to be with family [] Patient intubated [] Other: Summary ADB hernandez is disabled in pain and feeling better, wnats to go home soon Time spent with patient 10 mins
--- NOTE | 2020-08-27 16:29 | PM.PN ---
Subjective Subjective: Interval history: No acute events overnight. Patient states he is feeling a lot better. He is passing a lot of flatus. States pain is better. Early in the morning was started on clear liquid diet which he tolerated well. Denies any nausea, vomiting at present. States pain is better. Cramping has improved as well. Vitals/I&O/Wt Last Vital Signs Temp 98.6 F 08/27/20 12:00 Pulse 105 H 08/27/20 12:00 Resp 18 08/27/20 12:00 BP 138/79 08/27/20 12:00 Pulse Ox 98 08/27/20 12:00 08/27/20 08/27/20 08/27/20 06:59 14:59 22:59 Intake Total 1110 / 2160 1360 / 1360 Output Total 600 / 750 Balance 510 / 1410 1360 / 1360 Weight last 48 hrs Weight 91.172 kg Physical Exam Narrative: EXAM NARRATIVE: Awake alert oriented. In moderate distress secondary to abdominal pain. Skin is warm and dry. Dry mucous membranes Eyes PERRL, extraocular muscle intact. No icterus Neck supple. No JVD Normal speech Lungs. Bilateral coarse breath sounds and wheezes. No crackles. No respiratory distress Heart S1, S2, regular Abdomen soft, tender in the left upper quadrant without rebound bowel sounds are present no guarding, bowel sounds present and sluggish. Extremities no edema cyanosis or calf tenderness bilaterally Neuro examination is nonfocal. Data : 08/27/20 05:17 08/27/20 05:17 A&P Additional A&P Information Acute pancreatitis: History of multiple pancreatitis in the past. Does not seem to be related to gallbladder disease. Normal LFTs and normal CT appearance of the biliary system. Calcium was normal. Denies alcohol. Triglyceride levels normal. Alcohol level and drug screen from admission negative as well. Continue clear liquid diet for now. Advance to full liquid diet if tolerates lunch as well. Replete electrolytes as needed. Continue with Ringer lactate at 150 cc/h for now. Diet 0.5 every 6 hours as needed. Leukocytosis:Most likely related to acute pancreatitis and associated inflammatory response. A febrile. Pro-Maged negative. For now continue to hold off on antibiotics. Continue other chronic oral oral medications including mirtazapine, baclofen as needed, BuSpar, tamsulosin. Hypertension: Goal for goal blood pressure less than 140/90 mmHg. Continue prazosin. Diabetes. Since he is n.p.o. I will cover him with insulin sliding scale every 6 hours. We will hold his home oral medications. DVT prophylaxis. High risk for DVT. Lovenox. NPO. CODE STATUS. He wants to be full code. The plan of care was discussed with the patient. He verbalized understanding and agreement. Attestations Medical Necessity Statement*: Requires further hospitalization for management of acute pancreatitis as he is unable to hold anything down because of persistent nausea and vomiting. Time Spent in Patient Care: Greater than 35 minutes (>than 50% of time spent in counselling and/or direct pt care on unit). Coding Level of Care Code Acute Certified Hand Therapist for Toño Adkins
[2020-08-27 17:24] LABS: Glucose Point of Care 185 mg/dL (70-110)
[2020-08-27] MEDS: lipase-protease-amylase Capsule 1 EACH PO (19:06)
--- NOTE | 2020-08-27 19:45 | PC.NURSE ---
AT APPROX. 1755 HIDE TANNER WALKED INTO PTS ROOM TO ROUND, PT STATED I WAS GOING TO SIT DOWN AND I SLID DOWN ON MY BUTT. PT HAS SMALL SCRATCH ON LEFT ELBOW, NO OTHER S/SX OF FALL. NOTIFIED DR. LOMELI, HE REQUESTED A SET OF VITALS AND TO ACTIVATE PTS BED ALARM.
[2020-08-27 20:48] LABS: Glucose Point of Care 213 mg/dL (70-110)
[2020-08-27 21:39] LABS: Procalcitonin 0.08 ng/mL (0-0.5)
[2020-08-27] MEDS: enoxaparin 40 mg/0.4 mL Syringe SUBCUT (21:47)
[2020-08-27] MEDS: piperacillin-tazobactam 3.375 GM in sodium chloride 0.9% (plus) 50 ML IV (21:47)
[2020-08-28] VITALS (10 sets, daily range): BP systolic 135–156; BP diastolic 67–80; PULSE 86–103; RESP 16–20; TEMP 36.8–38.1; O2SAT 91–98
[2020-08-28] MEDS: lactated ringers 1,000 ML 150 ML IV ×4 (01:45→23:07)
[2020-08-28 02:30] LABS: Glucose Point of Care 189 mg/dL (70-110)
[2020-08-28] MEDS: HYDROmorphone 1 mg/mL INJ 1 mL 0.5 MG IVP ×4 (02:36→23:08)
[2020-08-28] MEDS: ondansetron 2 mg/ML SDV 2 mL 4 MG IVP ×4 (02:36→23:08)
[2020-08-28] MEDS: piperacillin-tazobactam 3.375 GM in sodium chloride 0.9% (plus) 50 ML IV ×3 (05:00→19:54)
[2020-08-28 06:03] LABS: Basophils # 0.1 10^3/uL (0.0-0.1); Basophils % 0.3 %; Eosinophils # 0.2 10^3/uL (0.0-0.8); Eosinophils % 1.4 %; Hematocrit 36.4 % (42.0-52.0); Hemoglobin 12.2 g/dL (11.7-16.6); Lymphocytes # 1.3 10^3/uL (0.8-4.8); Lymphocytes % 8.4 %; Mean Corpuscular HGB Conc 33.5 g/dL (30.0-36.0); Mean Corpuscular Hemoglobin 27.2 pg (28.0-34.0); Mean Corpuscular Volume 81.3 fL (80-94); Mean Platelet Volume 11.4 fL (7.4-10.4); Monocytes # 1.2 10^3/uL (0.2-0.9); Monocytes % 7.5 %; Neutrophils # 13.08 10^3/uL (1.8-7.7); Nucleated Red Blood Cells % 0 %; Platelet Count 230 10^3/cmm (130-400); Red Blood Count 4.48 10^6/uL (4.1-5.3); Red Cell Distribution Width 12.5 % (12.1-15.1); White Blood Count 15.9 10^3/uL (4.0-10.0)
[2020-08-28 06:20] LABS: Glucose Point of Care 145 mg/dL (70-110)
[2020-08-28 06:34] LABS: Alanine Aminotransferase 30 U/L (0-41); Albumin Level 3.6 g/dL (3.5-5.2); Alkaline Phosphatase 67 IU/L (40-130); Anion Gap 14.7 (5-19); Aspartate Amino Transferase 28 U/L (0-40); Blood Urea Nitrogen 11 mg/dL (6-20); Calcium 8.3 mg/dL (8.5-10.5); Carbon Dioxide 21 mmol/L (22-29); Chloride 100 mmol/L (98-107); Globulin 2.7 g/dL (1.3-4.6); Glomerular Filtration Rate 115.4 mL/min (90-130); Glucose 141 mg/dL (65-115); Osmolality Calculated 276 mOsm/kg (285-295); Potassium 3.7 mmol/L (3.5-5.1); Sodium 132 mmol/L (136-145); Total Bilirubin 0.8 mg/dL (0.15-1.2); Total Protein 6.3 g/dL (6.6-8.7)
[2020-08-28 06:48] LABS: Lipase 96 U/L (13-60)
[2020-08-28] MEDS: famotidine 20 mg/2 mL INJ IVP ×2 (08:51→19:51)
[2020-08-28] MEDS: gabapentin 400 mg Capsule PO ×2 (08:51→18:47)
[2020-08-28] MEDS: baclofen 10 mg Tablet 20 MG PO (08:51)
[2020-08-28] MEDS: BuSPIRONE 10 mg Tablet PO ×2 (08:51→18:47)
[2020-08-28] MEDS: mirtazapine 15 mg Tablet 7.5 MG PO (08:51)
[2020-08-28] MEDS: tamsulosin 0.4 mg Capsule PO (08:52)
--- NOTE | 2020-08-28 10:30 | PC.SOCIAL ---
Pg 2 IMM Explained to pt Pg 2 IMM. No questions voiced. Provided pt a copy. Signed, dated, & timed a copy & placed in chart.
[2020-08-28 10:46] LABS: Glucose Point of Care 241 mg/dL (70-110)
[2020-08-28 14:20] LABS: Glucose Point of Care 199 mg/dL (70-110)
--- NOTE | 2020-08-28 14:31 | P.PN_ITS ---
Subjective Subjective: Interval history: No acute events overnight. Patient has remained hemodynamically stable. He is tolerating full liquid diet well. He states he does not like the taste of full liquid diet. Overnight he spiked a fever of 101.2 Fahrenheit. Hemodynamically has remained stable. Vitals/I&O/Wt Last Vital Signs Temp 98.9 F 08/28/20 11:24 Pulse 86 08/28/20 11:24 Resp 20 H 08/28/20 11:24 BP 140/79 08/28/20 11:24 Pulse Ox 98 08/28/20 11:24 08/27/20 08/28/20 08/28/20 22:59 06:59 14:59 Intake Total 360 / 1720 1530 / 3250 1290 / 1290 Output Total 1825 / 1825 200 / 2025 1625 / 1625 Balance -1465 / -105 1330 / 1225 -335 / -335 Physical Exam Narrative: EXAM NARRATIVE: Awake alert oriented. In moderate distress secondary to abdominal pain. Skin is warm and dry. Dry mucous membranes Eyes PERRL, extraocular muscle intact. No icterus Neck supple. No JVD Normal speech Lungs. Bilateral coarse breath sounds and wheezes. No crackles. No respiratory distress Heart S1, S2, regular Abdomen soft, tender in the left upper quadrant without rebound bowel sounds are present no guarding, bowel sounds present and sluggish. Extremities no edema cyanosis or calf tenderness bilaterally Neuro examination is nonfocal. Data : 08/28/20 05:08 08/28/20 05:08 Micro: Microbiology 08/27/20 21:24 Blood Culture - Preliminary Blood SPECIMEN COLLECTED 08/27/20 21:16 Blood Culture - Preliminary Blood SPECIMEN COLLECTED Laboratory Results WBC 15.9 10^3/uL (4.0-10.0) H 08/28/20 05:08 RBC 4.48 10^6/uL (4.1-5.3) 08/28/20 05:08 Hgb 12.2 g/dL (11.7-16.6) 08/28/20 05:08 Hct 36.4 % (42.0-52.0) L 08/28/20 05:08 MCV 81.3 fL (80-94) D 08/28/20 05:08 MCH 27.2 pg (28.0-34.0) L 08/28/20 05:08 MCHC 33.5 g/dL (30.0-36.0) D 08/28/20 05:08 RDW 12.5 % (12.1-15.1) 08/28/20 05:08 Plt Count 230 10^3/cmm (130-400) 08/28/20 05:08 MPV 11.4 fL (7.4-10.4) H 08/28/20 05:08 Neut % (Auto) 82.0 % 08/28/20 05:08 Lymph % (Auto) 8.4 % 08/28/20 05:08 [place] % (Auto) 7.5 % 08/28/20 05:08 Eos % (Auto) 1.4 % 08/28/20 05:08 Baso % (Auto) 0.3 % 08/28/20 05:08 Neut # (Auto) 13.08 10^3/uL (1.8-7.7) H 08/28/20 05:08 Lymph # (Auto) 1.3 10^3/uL (0.8-4.8) 08/28/20 05:08 [place] # (Auto) 1.2 10^3/uL (0.2-0.9) H 08/28/20 05:08 Eos # (Auto) 0.2 10^3/uL (0.0-0.8) 08/28/20 05:08 Baso # (Auto) 0.1 10^3/uL (0.0-0.1) 08/28/20 05:08 Nucleated RBC % (auto) 0 % 08/28/20 05:08 Nucleated RBCs # 0.0 /100WBC 08/28/20 05:08 Sodium 132 mmol/L (136-145) L 08/28/20 05:08 Potassium 3.7 mmol/L (3.5-5.1) 08/28/20 05:08 Chloride 100 mmol/L (98-107) 08/28/20 05:08 Carbon Dioxide 21 mmol/L (22-29) L 08/28/20 05:08 Anion Gap 14.7 (5-19) 08/28/20 05:08 BUN 11 mg/dL (6-20) 08/28/20 05:08 Creatinine 0.7 mg/dL (0.7-1.2) 08/28/20 05:08 GFR Calculation 115.4 mL/min (90-130) 08/28/20 05:08 Glucose 141 mg/dL (65-115) H 08/28/20 05:08 POC Glucose 199 mg/dL (70-110) H 08/28/20 14:15 Calculated Osmolality 276 mOsm/kg (285-295) L 08/28/20 05:08 Calcium 8.3 mg/dL (8.5-10.5) L 08/28/20 05:08 Phosphorus 1.9 mg/dL (2.5-4.5) L 08/26/20 04:55 Magnesium 1.5 mg/dL (1.7-2.3) L 08/26/20 04:55 Total Bilirubin 0.8 mg/dL (0.15-1.2) 08/28/20 05:08 AST 28 U/L (0-40) 08/28/20 05:08 ALT 30 U/L (0-41) 08/28/20 05:08 Alkaline Phosphatase 67 IU/L (40-130) 08/28/20 05:08 Total Protein 6.3 g/dL (6.6-8.7) L 08/28/20 05:08 Albumin 3.6 g/dL (3.5-5.2) 08/28/20 05:08 Globulin 2.7 g/dL (1.3-4.6) 08/28/20 05:08 Triglycerides 110 mg/dL (0-150) 08/26/20 04:55 Triglycerides Cancelled 08/26/20 04:55 Cholesterol 117 mg/dL (0-200) 08/26/20 04:55 Cholesterol Cancelled 08/26/20 04:55 LDL Cholesterol, Calc 56 mg/dL (50-129) 08/26/20 04:55 LDL Cholesterol, Calc Cancelled 08/26/20 04:55 HDL Cholesterol 39 mg/dL (60-100) L 08/26/20 04:55 HDL Cholesterol Cancelled 08/26/20 04:55 LDL/HDL Ratio 1.44 RATIO (0.00-3.22) 08/26/20 04:55 LDL/HDL Ratio Cancelled 08/26/20 04:55 Cholesterol/HDL Ratio 3.00 mg/dL (1.0-5.00) 08/26/20 04:55 Cholesterol/HDL Ratio Cancelled 08/26/20 04:55 Lipase 96 U/L (13-60) H 08/28/20 05:08 Procalcitonin 0.08 ng/mL (0-0.5) 08/27/20 05:17 Urine Color Yellow (Yellow) 08/25/20 18:36 Urine Appearance Clear (CLEAR) 08/25/20 18:36 Urine pH 5 (5-7) 08/25/20 18:36 Ur Specific [place] 1.025 (1.005-1.030) 08/25/20 18:36 Urine Protein Trace (Negative) 08/25/20 18:36 Urine Glucose (UA) 4+ (Normal) H 08/25/20 18:36 Urine Ketones 2+ (Negative) H 08/25/20 18:36 Urine Blood Neg (Negative) 08/25/20 18:36 Urine Nitrate Negative (Negative) 08/25/20 18:36 Urine Bilirubin 1+ (Negative) H 08/25/20 18:36 Urine Urobilinogen 1 mg/dL (Negative) H 08/25/20 18:36 Ur Leukocyte Esterase Negative (Negative) 08/25/20 18:36 Urine RBC 0-4 /hpf (0-2) H 08/25/20 18:36 Urine WBC 0-4 /hpf (0-5) H 08/25/20 18:36 Ur Squamous Epith Cells 0-4 /hpf (0-5) H 08/25/20 18:36 Amorphous Sediment Not Reportable 08/25/20 18:36 Urine Bacteria Trace /hpf (NONE) 08/25/20 18:36 Hyaline Casts 0-4 /lpf H 08/25/20 18:36 Urine Mucus 1+ /hpf 08/25/20 18:36 Urine Opiates Screen Negative ng/mL (Negative) 08/25/20 18:36 Ur Barbiturates Screen Negative ng/mL (Negative) 08/25/20 18:36 Ur Phencyclidine Scrn Negative ng/mL (Negative) 08/25/20 18:36 Ur Amphetamines Screen Negative ng/mL (Negative) 08/25/20 18:36 U Benzodiazepines Scrn Negative ng/mL (Negative) 08/25/20 18:36 Urine Cocaine Screen Negative ng/mL (Negative) 08/25/20 18:36 U Marijuana (THC) Screen Positive ng/mL (Negative) H 08/25/20 18:36 Ethyl Alcohol < 10 mg/dL (0-10) 08/25/20 18:36 Impressions Abdomen/Pelvis CT 08/25/20 19:23 IMPRESSION: Positive for acute pancreatitis changes. COMMENTS: Consistent with the [employer]'s Incidental Findings Committee white paper (J Am Lesley Radiol 2018): Any incidental renal lesion less than 1 cm or classified as too small to characterize, or any incidental cystic renal lesion characterized as simple-appearing, is likely benign. No follow-up imaging is recommended for these lesions per consensus recommendations based on imaging criteria. Radiation Dose CTDIVOL = (mGy): DLP = 1758.94 (mGy-cm) A&P Additional A&P Information Acute pancreatitis: History of multiple pancreatitis in the past. Does not seem to be related to gallbladder disease. Normal LFTs and normal CT appearance of the biliary system. Calcium was normal. Denies alcohol. Tri glyceride levels normal. Alcohol level and drug screen from admission negative as well. Continue full liquid diet for now. Will advance diet very gradually because of nausea. Have advised patient to take frequent small meals. Replete electrolytes as needed. Continue with Ringer lactate at 100 cc/h for now. Dilaudid 0.5 every 6 hours as needed. Pancrelipase with each meals. Leukocytosis: Resolving. Patient did have a spike of fever overnight. Can be secondary to inflammation from pancreatitis. White count trending down. Procalcitonin negative. MRSA swab pending. Blood culture sent last night. For now continue with Zosyn at current dose. Recheck procalcitonin today. Continue other chronic oral oral medications including mirtazapine, baclofen as needed, BuSpar, tamsulosin. Hypertension: Goal for goal blood pressure less than 140/90 mmHg. Continue prazosin. Diabetes. Since he is n.p.o. I will cover him with insulin sliding scale every 6 hours. We will hold his home oral medications. DVT prophylaxis. High risk for DVT. Lovenox. Full liquid diet. CODE STATUS. He wants to be full code. The plan of care was discussed with the patient. He verbalized understanding and agreement. Attestations Medical Necessity Statement*: Requires further hospitalization for management of acute pancreatitis while his diet is advanced, febrile overnight Time Spent in Patient Care: Greater than 35 minutes (>than 50% of time spent in counselling and/or direct pt care on unit) . Coding Level of Care Code Acute Roving Tester Laboratory for Toño Adkins
[2020-08-28 15:37] LABS: Procalcitonin 0.11 ng/mL (0-0.5)
[2020-08-28] MEDS: lipase-protease-amylase Capsule 1 EACH PO (18:47)
[2020-08-28] MEDS: enoxaparin 40 mg/0.4 mL Syringe SUBCUT (19:53)
[2020-08-28 20:53] LABS: Glucose Point of Care 279 mg/dL (70-110)
[2020-08-29 02:19] LABS: Glucose Point of Care 173 mg/dL (70-110)
[2020-08-29 04:00] VITALS: BP 152/69; PULSE 91; RESP 18; TEMP 37.3; O2SAT 97
[2020-08-29] MEDS: piperacillin-tazobactam 3.375 GM in sodium chloride 0.9% (plus) 50 ML IV (05:05)
[2020-08-29 05:08] VITALS: RESP 18
[2020-08-29] MEDS: HYDROmorphone 1 mg/mL INJ 1 mL 0.5 MG IVP (05:08)
[2020-08-29] MEDS: ondansetron 2 mg/ML SDV 2 mL 4 MG IVP (05:08)
[2020-08-29 06:00] LABS: Basophils # 0.1 10^3/uL (0.0-0.1); Basophils % 0.3 %; Eosinophils # 0.3 10^3/uL (0.0-0.8); Eosinophils % 1.5 %; Hematocrit 37.5 % (42.0-52.0); Hemoglobin 12.7 g/dL (11.7-16.6); Lymphocytes # 1.3 10^3/uL (0.8-4.8); Lymphocytes % 7.6 %; Mean Corpuscular HGB Conc 33.9 g/dL (30.0-36.0); Mean Corpuscular Volume 79.8 fL (80-94); Mean Platelet Volume 11.2 fL (7.4-10.4); Monocytes # 1.6 10^3/uL (0.2-0.9); Monocytes % 9.4 %; Neutrophils # 13.35 10^3/uL (1.8-7.7); Neutrophils % 80.7 %; Nucleated Red Blood Cells % 0 %; Platelet Count 269 10^3/cmm (130-400); Red Cell Distribution Width 12.2 % (12.1-15.1); White Blood Count 16.6 10^3/uL (4.0-10.0)
--- NOTE | 2020-08-29 07:35 | P.DS_ITS ---
Discharge Providers Date of Admission: 08/27/20 16:23 Date of Discharge: August 29, 2020 Attending Provider at Admission: Epi Swan Attending Provider at Discharge: Nicolás Alvarado MD Reason for Visit Reason for Visit: ABD PAIN Hospital Course Hospital Course FIDEL RENDON is a 60 year old male with past medical history of diabetes, hypertension, COPD, BPH, dyslipidemia who presents with complaints of left upper quadrant and epigastric abdominal pain which started 2 to 3 days ago initially mild, progressively got worse and currently is severe. Constant. No modifying factors. Reports similar in the past. In 2009 he was diagnosed with acute pancreatitis when presented with similar symptoms. He denies any new medications recently. He denies alcohol. He reports that his diabetes control has improved recently. Reports nausea and one episode of vomiting. No hematemesis. Denies rectal blood. He reports that his stool is kind of oily. Denies fever or chills. His temperature was about 98 earlier today. Reports chronic cough and wheezes. No shortness of breath or mucus production. No chest pain. Patient went to the hospital for management of acute pancreatitis. He was kept n.p.o. for bowel rest and started IV fluids and pain management. Gradually the diet was advanced and currently he is tolerating full liquid diet well. Patient did spike fevers on and off for last 2 days though his blood cultures and procalcitonin has remained negative on subsequent checks. Patient's fevers are most likely inflammatory from acute pancreatitis. He has remained hemodynamically stable during hospitalization and has been doing well with full liquid diet. Patient has been eager to be discharged so he has been discharged hemodynamically stable condition on oral antibiotics with Augmentin for next 7 days with advised to take frequent small meals, to start on full liquid diet and then advance gradually within next 10 days as tolerated. He is also advised to follow-up with his primary care provider on set appointment on September 03. He is advised to come back to the ER if he starts having fever more of more than 101 and persistent vomiting. Patient verbalized understanding. Physical Exam Narrative: EXAM NARRATIVE: Awake alert oriented. Skin is warm and dry. moist mucous membranes Eyes PERRL, extraocular muscle intact. No icterus Neck supple. No JVD Normal speech Lungs. Bilateral coarse breath sounds and wheezes. No crackles. No respiratory distress Heart S1, S2, regular Abdomen soft,less tender in the left upper quadrant without rebound bowel sounds are present no guarding, bowel sounds present and sluggish. Extremities no edema cyanosis or calf tenderness bilaterally Neuro examination is nonfocal. Discharge Data Data Completed and Pending: Completed Studies During Hospitalization Category Date Time Status CT abdomen pelvis w con* [id number] Urge nt Cat Scan 08/25/20 19:23 Completed Pending at discharge Category Date Time Status Blood Culture Sta t Lab 08/27/20 21:24 Results Labs from last 24 hours 08/29/20 08/29/20 08/28/20 04:50 02:16 20:16 WBC 16.6 H RBC 4.70 Hgb 12.7 Hct 37.5 L MCV 79.8 L MCH 27.0 L MCHC 33.9 RDW 12.2 Plt Count 269 MPV 11.2 H Neut % (Auto) 80.7 Lymph % (Auto) 7.6 [place] % (Auto) 9.4 Eos % (Auto) 1.5 Baso % (Auto) 0.3 Neut # (Auto) 13.35 H Lymph # (Auto) 1.3 [place] # (Auto) 1.6 H Eos # (Auto) 0.3 Baso # (Auto) 0.1 Nucleated RBC % (a uto) 0 Nucleated RBCs # 0.0 POC Glucose 173 H 279 H Procalcitonin 08/28/20 08/28/20 08/28/20 14:15 10:32 05:08 WBC RBC Hgb Hct MCV MCH MCHC RDW Plt Count MPV Neut % (Auto) Lymph % (Auto) [place] % (Auto) Eos % (Auto) Baso % (Auto) Neut # (Auto) Lymph # (Auto) [place] # (Auto) Eos # (Auto) Baso # (Auto) Nucleated RBC % (a uto) Nucleated RBCs # POC Glucose 199 H 241 H Procalcitonin 0.11 Addt'l Data from Hospital Stay: Laboratory Results WBC 16.6 10^3/uL (4.0 -10.0) H 08/29/20 04:50 RBC 4.70 10^6/uL (4.1 -5.3) 08/29/20 04:50 Hgb 12.7 g/dL (11.7-1 6.6) 08/29/20 04:50 Hct 37.5 % (42.0-52.0 ) L 08/29/20 04:50 MCV 79.8 fL (80-94) L 08/29/20 04:50 MCH 27.0 pg (28.0-34. 0) L 08/29/20 04:50 MCHC 33.9 g/dL (30.0-3 6.0) 08/29/20 04:50 RDW 12.2 % (12.1-15.1 ) 08/29/20 04:50 Plt Count 269 10^3/cmm (130 -400) 08/29/20 04:50 MPV 11.2 fL (7.4-10.4 ) H 08/29/20 04:50 Neut % (Auto) 80.7 % 08/29/20 04:50 Lymph % (Auto) 7.6 % 08/29/20 04:50 [place] % (Auto) 9.4 % 08/29/20 04:50 Eos % (Auto) 1.5 % 08/29/20 04:50 Baso % (Auto) 0.3 % 08/29/20 04:50 Neut # (Auto) 13.35 10^3/uL (1. 8-7.7) H 08/29/20 04:50 Lymph # (Auto) 1.3 10^3/uL (0.8- 4.8) 08/29/20 04:50 [place] # (Auto) 1.6 10^3/uL (0.2- 0.9) H 08/29/20 04:50 Eos # (Auto) 0.3 10^3/uL (0.0- 0.8) 08/29/20 04:50 Baso # (Auto) 0.1 10^3/uL (0.0- 0.1) 08/29/20 04:50 Nucleated RBC % (a uto) 0 % 08/29/20 04:50 Nucleated RBCs # 0.0 /100WBC 08/29/20 04:50 Sodium 132 mmol/L (136-1 45) L 08/28/20 05:08 Potassium 3.7 mmol/L (3.5-5 .1) 08/28/20 05:08 Chloride 100 mmol/L (98-10 7) 08/28/20 05:08 Carbon Dioxide 21 mmol/L (22-29) L 08/28/20 05:08 Anion Gap 14.7 (5-19) 08/28/20 05:08 BUN 11 mg/dL (6-20) 08/28/20 05:08 Creatinine 0.7 mg/dL (0.7-1. 2) 08/28/20 05:08 GFR Calculation 115.4 mL/min (90- 130) 08/28/20 05:08 Glucose 141 mg/dL (65-115 ) H 08/28/20 05:08 POC Glucose 260 mg/dL (70-110 ) H 08/29/20 08:35 Calculated Osmolal ity 276 mOsm/kg (285- 295) L 08/28/20 05:08 Calcium 8.3 mg/dL (8.5-10 .5) L 08/28/20 05:08 Phosphorus 1.9 mg/dL (2.5-4. 5) L 08/26/20 04:55 Magnesium 1.5 mg/dL (1.7-2. 3) L 08/26/20 04:55 Total Bilirubin 0.8 mg/dL (0.15-1 .2) 08/28/20 05:08 AST 28 U/L (0-40) 08/28/20 05:08 ALT 30 U/L (0-41) 08/28/20 05:08 Alkaline Phosphata se 67 IU/L (40-130) 08/28/20 05:08 Total Protein 6.3 g/dL (6.6-8.7 ) L 08/28/20 05:08 Albumin 3.6 g/dL (3.5-5.2 ) 08/28/20 05:08 Globulin 2.7 g/dL (1.3-4.6 ) 08/28/20 05:08 Triglycerides 110 mg/dL (0-150) 08/26/20 04:55 Triglycerides Cancelled 08/26/20 04:55 Cholesterol 117 mg/dL (0-200) 08/26/20 04:55 Cholesterol Cancelled 08/26/20 04:55 LDL Cholesterol, C alc 56 mg/dL (50-129) 08/26/20 04:55 LDL Cholesterol, C alc Cancelled 08/26/20 04:55 HDL Cholesterol 39 mg/dL (60-100) L 08/26/20 04:55 HDL Cholesterol Cancelled 08/26/20 04:55 LDL/HDL Ratio 1.44 RATIO (0.00- 3.22) 08/26/20 04:55 LDL/HDL Ratio Cancelled 08/26/20 04:55 Cholesterol/HDL Ra donna 3.00 mg/dL (1.0-5 .00) 08/26/20 04:55 Cholesterol/HDL Ra donna Cancelled 08/26/20 04:55 Lipase 96 U/L (13-60) H 08/28/20 05:08 Procalcitonin 0.11 ng/mL (0-0.5 ) 08/28/20 05:08 Urine Color Yellow (Yellow) 08/25/20 18:36 Urine Appearance Clear (CLEAR) 08/25/20 18:36 Urine pH 5 (5-7) 08/25/20 18:36 Ur Specific [place]it y 1.025 (1.005-1.0 30) 08/25/20 18:36 Urine Protein Trace (Negative) 08/25/20 18:36 Urine Glucose (UA) 4+ (Normal) H 08/25/20 18:36 Urine Ketones 2+ (Negative) H 08/25/20 18:36 Urine Blood Neg (Negative) 08/25/20 18:36 Urine Nitrate Negative (Negati ve) 08/25/20 18:36 Urine Bilirubin 1+ (Negative) H 08/25/20 18:36 Urine Urobilinogen 1 mg/dL (Negative ) H 08/25/20 18:36 Ur Leukocyte Keerthi ase Negative (Negati ve) 08/25/20 18:36 Urine RBC 0-4 /hpf (0-2) H 08/25/20 18:36 Urine WBC 0-4 /hpf (0-5) H 08/25/20 18:36 Ur Squamous Epith Cells 0-4 /hpf (0-5) H 08/25/20 18:36 Amorphous Sediment Not Reportable 08/25/20 18:36 Urine Bacteria Trace /hpf (NONE) 08/25/20 18:36 Hyaline Casts 0-4 /lpf H 08/25/20 18:36 Urine Mucus 1+ /hpf 08/25/20 18:36 Urine Opiates Scre en Negative ng/mL (N egative) 08/25/20 18:36 Ur Barbiturates Sc reen Negative ng/mL (N egative) 08/25/20 18:36 Ur Phencyclidine S crn Negative ng/mL (N egative) 08/25/20 18:36 Ur Amphetamines Sc reen Negative ng/mL (N egative) 08/25/20 18:36 U Benzodiazepines Scrn Negative ng/mL (N egative) 08/25/20 18:36 Urine Cocaine Scre en Negative ng/mL (N egative) 08/25/20 18:36 U Marijuana (THC) Screen Positive ng/mL (N egative) H 08/25/20 18:36 Ethyl Alcohol < 10 mg/dL (0-10) 08/25/20 18:36 Impressions Abdomen/Pelvis CT 08/25/20 19:23 IMPRESSION: Positive for acute pancreatitis changes. COMMENTS: Consistent with the [place] [employer]'s Incidental Findings Committee white paper (J Am Lesley Radiol 2018): Any incidental renal lesion less than 1 cm or classified as too small to characterize, or any incidental cystic renal lesion characterized as simple-appearing, is likely benign. No follow-up imaging is recommended for these lesions per consensus recommendations based on imaging criteria. Radiation Dose CTDIVOL = (mGy): DLP = 1758.94 (mGy-cm) Vitals: Last Vital Signs Temp 99.1 F 08/29/20 04:00 Pulse 91 08/29/20 04:00 Resp 18 08/29/20 05:08 BP 152/69 08/29/20 04:00 Pulse Ox 97 08/29/20 04:00 Discharge Plan Discharge Patient Disposition: Home Condition: Stable Prescriptions: New Augmentin 875-125 mg tablet 1 tab PO Q12H Qty: 14 RF: 0 Tylenol 325 mg capsule 325 mg PO Q6H PRN (Reason: fever or pain) Qty: 30 RF: 0 tramadol 50 mg tablet 50 mg PO Q8H PRN (Reason: pain) Qty: 14 RF: 0 Continued atorvastatin 40 mg tablet 40 mg PO DAILY RF: 0 prazosin 1 mg capsule 10 mg PO DAILY RF: 0 gabapentin 400 mg capsule 400 mg PO BID RF: 0 baclofen 20 mg tablet 20 mg PO TID PRN (Reason: UNKNOWN) RF: 0 tamsulosin 0.4 mg capsule 0.4 mg PO DAILY RF: 0 omeprazole 20 mg capsule,delayed release(DR/EC) 20 mg PO DAILY RF: 0 diclofenac sodium 75 mg tablet,delayed release (DR/EC) 75 mg PO BID RF: 0 mirtazapine 15 mg tablet 7.5 mg PO DAILY RF: 0 albuterol sulfate [Ventolin HFA] 90 mcg/actuation HFA aerosol inhaler 2 puff inhalation Q6H PRN (Reason: Wheezing) RF: 0 metformin 500 mg tablet extended release 24 hr 500 mg PO BID RF: 0 glipizide 5 mg tablet 5 mg PO TID RF: 0 prazosin 2 mg capsule 2 mg PO DAILY RF: 0 buspirone 15 mg tablet 15 mg PO BID RF: 0 ramelteon 8 mg tablet 8 mg PO DAILY RF: 0 fenofibrate nanocrystallized 145 mg tablet 145 mg PO DAILY RF: 0 Symbicort 160-4.5 mcg/actuation HFA aerosol inhaler See Rx Instructions .ROUTE .COMPLEX RF: 0 Discharge Orders: Discharge Order (Routine); Ordered 08/29/20 Ordered By: Nicolás Alvarado Referrals: [facility] [Other] - 09/03/20 9:00 am (Please Bring in your photo ID. You will be seeing Dr. Barlow to establish Primary Care. You are welcome to come by before your appointment date. At this appointment you will also be set up with behavioral health services. ) Discharge Diet: Advance as tolerated and Full LIquid Discharge Activity: Resume usual activity Patient Instructions: Full Liquid Diet, Pancreatitis (GEN), Opioid Safety Activity Restrictions/Additional Instructions: [facility] [id number] [facility] [place] [id number] [facility] [phone] [facility] [place] [id number] As discussed in detail please take small frequent meals during the day. Start on full liquid diet for now and then advance gradually over the period of next 10 days. Please follow-up with your primary care provider within 5 days on the set appointment. If you have any fevers, excessive vomiting please come to the ER. You will be on Augmentin which is the antibiotic for next 7 days. He supposed to take it twice a day. Discharge Attestations Time Spent in Discharge Care*: greater than 30 min Specific Discharge Activities: educating patient, discussing with employment case manager/social workers/dc planners, documenting/other paperwork and evaluating patient/reviewing data Status at Discharge: Cognitive status at discharge: cognitively intact , Behavioral status at discharge: cooperative , Functional status at discharge: independent ambulation Overall status at discharge: patient is progressing back to baseline Quality Metrics Clinical Quality Measures During this hospital stay, did patient experience: None Coding Level of Care Code Acute Chg FW DC note
[2020-08-29 08:00] VITALS: BP 145/78; PULSE 98; RESP 17; TEMP 38.1; O2SAT 97
[2020-08-29] MEDS: lipase-protease-amylase Capsule 1 EACH PO ×2 (08:08→12:37)
[2020-08-29] MEDS: BuSPIRONE 10 mg Tablet PO (08:08)
[2020-08-29] MEDS: gabapentin 400 mg Capsule PO (08:09)
[2020-08-29] MEDS: mirtazapine 15 mg Tablet 7.5 MG PO (08:09)
[2020-08-29] MEDS: tamsulosin 0.4 mg Capsule PO (08:09)
[2020-08-29] MEDS: acetaminophen 325 mg Tablet PO (08:33)
[2020-08-29 08:38] LABS: Glucose Point of Care 260 mg/dL (70-110)
[2020-08-29] MEDS: famotidine 20 mg/2 mL INJ IVP (08:50)
[2020-08-29 15:26] VITALS: BP 140/75; PULSE 98; RESP 17; TEMP 37.1; O2SAT 97
== END 2020-08-29 15:33 | disposition home or self-care (01) | DRG 440 ==
LOC: ER 20:37 → MEDSURG 08-26 07:49
PROVIDERS: Admitting Provider Internal Medicine; Emergency Provider Physician Assistant; Visit Provider Student in an Organized Health Care Education/Training Program
DX: K85.90 Acute pancreatitis without necrosis or infection, unspecified (principal); I10 Essential (primary) hypertension; E11.9 Type 2 diabetes mellitus without complications; Z79.84 Long term (current) use of oral hypoglycemic drugs; J44.9 Chronic obstructive pulmonary disease, unspecified; E78.5 Hyperlipidemia, unspecified; N40.0 Benign prostatic hyperplasia without lower urinary tract symptoms
CPT/HCPCS: 36415; 36416; 74177; 80053; 80061; 80306; 80307; 81001; 82962; 83690; 83735; 84100; 84145; 85025; 87040; 87641; 96361; 96372; 96374; 96375; 96376; 99285; G0378; J1170; J1650; J1815; J2270; J2405; J2543; J3475; J3490; J7030; Q9967

== ENCOUNTER 2021-04-05 14:08 | Outpatient (CLI) | payer MEDICARE, MEDICAID, SELFPAY ==
--- NOTE | 2021-04-05 14:16 | XR_ITS ---
WS: [id number] LUMBAR SPINE: 3 VIEWS TECHNIQUE: AP, lateral and L5-S1 spot. HISTORY: LUMBAR RADICULOPATHY COMPARISON: None available. L5 anterolisthesis by 6 mm with bilateral pars defects evident. Severe disc space narrowing at L5-S1 with endplate sclerosis and small osteophytes. No fractures. SI joints are symmetric bilaterally. No soft tissue abnormalities. XR/XR lumbar spine 2-3V* [id number] IMPRESSION: Grade 1 L5 spondylolisthesis with bilateral pars defects.
== END 2021-04-05 14:09 | disposition home or self-care (01) ==
PROVIDERS: PCP Nurse Practitioner Family; Visit Provider Nurse Practitioner Family
DX: M54.16 Radiculopathy, lumbar region (principal); M43.16 Spondylolisthesis, lumbar region
CPT/HCPCS: 72100

== ENCOUNTER 2021-04-16 15:39 | Outpatient (CLI) | payer MEDICARE, MEDICAID, SELFPAY ==
--- NOTE | 2021-04-16 16:05 | MR_ITS ---
WS: [id number] MRI LUMBAR SPINE NONCONTRAST TECHNIQUE: Sagittal T1, T2 and STIR imaging. Axial T1 and T2 imaging. CLINICAL INFORMATION: LUMBAR RADICULOPATHY COMPARISON: None. FINDINGS: Mild lumbar curve. No acute compression. Grade 1 anterolisthesis L5 on S1 with chronic bilateral spon dylolisthesis. Disc space narrowing worse L5-S1. L1-L2: Normal. L2-L3: Normal. L3-L4: Mild annular bulging. Mild facet arthropathy. Spinal canal and foramen are patent. L4-L5: No significant disc bulging. Mild facet arthropathy. Spinal canal and foramen are patent. L5-S1: Grade 1 anterolisthesis L5 on S1 with spondylolisthesis. Mild facet arthropathy. Small central disc herniation extends just posterior to the L5 vertebral body. Eccentric disc bulging results in m oderate bilateral foraminal narrowing with impingement on the exiting L5 nerve roots bilaterally. Mild disc bulging C3-C4 with mild central canal stenosis seen on the vegetable harvest worker imaging. Postoperative lidia nges ACDF C4-C6. Small bilateral simple cysts. MR/MR lumbar spine wo con* [id number] IMPRESSION: 1. Mild lumbar curve. No acute compression. Grade 1 anterolisthesis L5 on S1 w ith chronic spondylolysis. 2. Moderate bilateral L5-S1 foraminal narrowing with impingement on the exitin g L5 nerve roots bilaterally. 3. Tiny central disc herniation L5-S1 with slight subligamentous extension pos terior to L5. Spinal canal is patent. 4. Mild to moderate facet arthropathy L3-L5. 5. Central disc protrusion C3-C4 seen on the vegetable harvest worker imaging with mild central c anal stenosis and slight contact of the cervical cord. Prior ACDF C4-C6.
== END 2021-04-16 15:40 | disposition home or self-care (01) ==
PROVIDERS: PCP Nurse Practitioner Family; Visit Provider Nurse Practitioner Family
DX: M54.16 Radiculopathy, lumbar region (principal); M50.21 Other cervical disc displacement, high cervical region; M47.816 Spondylosis without myelopathy or radiculopathy, lumbar region; M51.27 Other intervertebral disc displacement, lumbosacral region
CPT/HCPCS: 72148

== ENCOUNTER → 2021-05-27 10:50 | Outpatient (BNVA) | payer BC, MEDICAID, SELFPAY | PROVIDERS: PCP Nurse Practitioner Family; Referring Provider Nurse Practitioner Family; Visit Provider Orthopaedic Surgery | DX: M54.9 Dorsalgia, unspecified (principal) | CPT/HCPCS: 72120 ==

== ENCOUNTER 2021-10-18 13:06 | Inpatient (IN) | payer MEDICARE, MEDICAID, SELFPAY ==
[2021-10-13 12:09] VITALS: BMI 23.3
--- NOTE | 2021-10-13 12:33 | ECG_ITS ---
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 Measurements Intervals [place] Rate: 73 P: 36 TX: 160 QRS: 47 QRSD: 73 T: 47 QT: 366 QTc: 406 Interpretive Statements SINUS RHYTHM No previous ECG available for comparison Electronically Signed On 10-13-2021 20:13:33 CDT by Ilia Chen M.D. [id number]
--- NOTE | 2021-10-13 13:13 | P.ANESASSM_ITS ---
Pre-Anesthetic Assessment Height/Weight: Height 1.75 m Weight 71.668 kg Operation Date: 10/18/21 08:50 Proposed Procedures p PLIF L5/S1 [id number]/[id number]/M43.17(Not Applicable) - Alejo Yeager, DO Social Alcohol and Tobacco Exam CTA b/l; RRR; no M/G/R's Airway Submandibular: within normal limits Cervical ROM: within normal limits Mallampati: Class I Pulmonary Chronic Obstructive Pulmonary Disease CV/HEM Hypertension BPH GI GERD/gastritis Musc/skel Lower Back Pain and Osteoarthritis/DJD Neuropsych Anxiety and Depression Anesthetic Plan ASA status: 3 Anesthesia: General Medications/Allergies Home Medications Medication Instructions Recorded Confirmed Last Taken Type albuterol sulfate 90 mcg/actuation 2 puff INHALATION Q6H PRN 08/25/20 10/13/21 08/26/20 History aerosol inhaler (Ventolin HFA) 2 puff atorvastatin 40 mg tablet 40 mg PO DAILY 08/25/20 10/13/21 08/25/20 History baclofen 20 mg tablet 20 mg PO TID PRN 08/25/20 10/13/21 08/25/20 History budesonide-formoterol HFA 160 See Rx Instructions .ROUTE .COMPLEX 08/25/20 10/13/21 Unknown History mcg-4.5 mcg/actuation aerosol inhaler (Symbicort) buspirone 15 mg tablet 15 mg PO BID 08/25/20 10/13/21 08/25/20 History diclofenac sodium 75 mg 75 mg PO BID 08/25/20 10/13/21 08/25/20 History tablet,delayed release gabapentin 400 mg capsule 600 mg PO BID 08/25/20 10/13/21 08/25/20 History glipizide 5 mg tablet 10 mg PO DAILY 08/25/20 10/13/21 08/25/20 History metformin 500 mg tablet,extended 500 mg PO BID 08/25/20 10/13/21 08/25/20 History release 24 hr omeprazole 20 mg capsule,delayed 20 mg PO DAILY 08/25/20 10/13/21 08/25/20 History release prazosin 1 mg capsule 1 mg PO DAILY 08/25/20 10/13/21 08/25/20 History prazosin 2 mg capsule 2 mg PO DAILY 08/25/20 10/13/21 08/25/20 History tamsulosin 0.4 mg capsule 0.4 mg PO DAILY 08/25/20 10/13/21 08/24/20 History acetaminophen 325 mg capsule 325 mg PO Q6H PRN #30 cap 08/29/20 10/13/21 Unknown Rx (Tylenol) [id number]-tscazxhq-svmxpoq 10,000 cap PO TID 10/13/21 10/13/21 Unknown History 10,000-32,000-42,000 unit capsule,delayed rel (Zenpep) [id number]-aifbxfww-bbvejla 15,000 cap PO TID 10/13/21 10/13/21 Unknown History 15,000-47,000-63,000 unit capsule,delayed rel (Zenpep) losartan 25 mg tablet 25 mg PO DAILY 10/13/21 10/13/21 Unknown History tiotropium bromide 18 mcg capsule 2 mcg INHALATION DAILY 10/13/21 10/13/21 Unknown History with inhalation device (Spiriva with HandiHaler) ziprasidone HCl 40 mg capsule 40 mg PO BID 10/13/21 10/13/21 Unknown History Allergies Allergy/AdvReac Type Severity Reaction Status Date / Time No Known Allergies Allergy Verified 07/22/21 13:09 [facility] Anesthesia Social History Smoking and tobacco status: current every day smoker (3 pack per day ) Data Anesthesia : 10/13/21 12:45 Cardiac Studies: No Data to Display
[2021-10-13 13:44] LABS: Anion Gap 13.2 (5-19); Blood Urea Nitrogen 11 mg/dL (8-23); Calcium 9.4 mg/dL (8.5-10.5); Carbon Dioxide 26 mmol/L (22-29); Chloride 105 mmol/L (98-107); Glomerular Filtration Rate 137.4 mL/min (90-130); Glucose 97 mg/dL (65-115); Osmolality Calculated 289 mOsm/kg (285-295); Potassium 4.2 mmol/L (3.5-5.1); Sodium 140 mmol/L (136-145)
[2021-10-18] VITALS (25 sets, daily range): BP systolic 100–137; BP diastolic 57–95; PULSE 50–90; RESP 11–28; TEMP 36.6–37; O2SAT 95–100; BMI 23.3
--- NOTE | 2021-10-18 | SCC_ITS ---
Procedure done: 1. L5/I6Sdukkoevv fusion with posterolateral fusion 2. Instrumentation L5/S1 3. Cage at L5/S1 4. Laminectomy L5 5. use of autograft from same incision 6. allograft 7. Bone marrow aspirate from right iliac crest 8. Computer navigation steretactic spine 8 seconds of fluoroscopic guidance, for a cumulative dose of 29.6 mGy, was provided to Dr. Yeager by the radiology department. C-arm images of the lumbar spine were saved for the patient's permanent record. ELISE
[2021-10-18 07:26] LABS: Glucose Point of Care 178 mg/dL (70-110)
[2021-10-18] MEDS: sodium chloride 0.9% 1,000 ML 30 ML IV (07:31)
[2021-10-18 07:39] LABS: Basophils # 0.1 10^3/uL (0.0-0.1); Basophils % 0.5 %; Eosinophils # 0.3 10^3/uL (0.0-0.8); Eosinophils % 2.3 %; Hemoglobin 13.8 g/dL (11.7-16.6); Lymphocytes # 1.8 10^3/uL (0.8-4.8); Lymphocytes % 16.9 %; Mean Corpuscular HGB Conc 34.5 g/dL (30.0-36.0); Mean Corpuscular Hemoglobin 28.2 pg (28.0-34.0); Mean Corpuscular Volume 81.6 fl (80-94); Mean Platelet Volume 10.9 fL (7.4-10.4); Monocytes # 0.6 10^3/uL (0.2-0.9); Monocytes % 5.3 %; Neutrophils # 7.95 10^3/uL (1.8-7.7); Neutrophils % 74.6 %; Nucleated Red Blood Cells % 0 %; Platelet Count 263 10^3/cmm (130-400); Red Cell Distribution Width 12.6 % (12.1-15.1); White Blood Count 10.7 10^3/uL (4.0-10.0)
[2021-10-18] MEDS: fentaNYL 50 mcg/mL INJ 2mL IVP (07:54)
--- NOTE | 2021-10-18 07:59 | P.ANESUD_ITS ---
Pre-Anesthetic Update Pre-Anesthetic Assessment: Date of Surgery/Procedure: 10/18/21 Preop Meredith gnosis: Spondylolisthesis L5-S1 with stenosis Proposed Procedure: Operation Date: 10/18/21 08:50 Proposed Procedures p PLIF L5/S1 [id number]/[id number]/M43.17(Not Applicable) - Alejo H Shobha, DO Any changes to Pre-Anesthetic Assessment?: No Last Intake: Intake Last Liquid Date 10/17/21 Last Liquid Time 00:00 Last Solid Date 10/09/21 Last Solid Time 18:00 Labs Last 48hrs: Short CBC 10/18/21 Range/Units 07:25 WBC 10.7 H (4.0-10.0) 10^3/ uL Hgb 13.8 (11.7-16.6) g/dL Hct 40.0 L (42.0-52.0) % MCV 81.6 (80-94) fl Plt Count 263 (130-400) 10^3/c mm Neut % (Auto) 74.6 % Neut # (Auto) 7.95 H (1.8-7.7) 10^3/u L Vitals: Temperature 98.4 F 10/18/21 07:08 Temperature Source Temporal Artery S can 10/18/21 07:08 Pulse Rate 81 10/18/21 07:08 Respiratory Rate 18 10/18/21 07:08 Blood Pressure 137/70 10/18/21 07:08 Blood Pressure Geovanna n 92 10/18/21 07:08 Pulse Oximetry 99 10/18/21 07:08 Oxygen Delivery Me thod 10/18/21 07:09 Exam: Pre-Anes Outpt Exam: alert, oriented x 3, clear to auscultation bilaterally and regular rate & rhythm Cardiac Studies: No Data to Display
--- NOTE | 2021-10-18 08:46 | P.HP_ITS ---
Providers/Chief Complaint Primary Care Provider: Erika Morley ANALOG IC DESIGN ENGINEER-C Chief Complaint: SPONDYLOLISTHESIS History of Present Illness Herman Uriostegui is a 61 year old male He describes pain that is worse on some days and at times travels to the posterior bilateral legs. He states that at times the leg pain is worse than the back pain. He had previous cervical spine in 2000. 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 Review of Systems General: Reports: 10 or more systems reviewed and unremarkable except in HPI and below Const: Denies: fever(s) Eyes: Denies: change in vision ENMT: Denies: throat pain Card: Denies: chest pain Resp: Denies: dyspnea GI: Denies: abdominal pain : Denies: urinary incontinence Musc: Reports: back pain and extremity pain Neuro: Reports: weakness in extremities and difficulty walking Psych: Denies: anxiety Beltran/Lymph: Denies: easy bruising Medications/Allergies Home Medications Medication Instructions Recorded Confirmed Last Taken Type albuterol sulfate 90 mcg/actuation 2 puff INHALATION Q6H PRN 08/25/20 10/13/21 08/26/20 History aerosol inhaler (Ventolin HFA) 2 puff atorvastatin 40 mg tablet 40 mg PO DAILY 08/25/20 10/13/21 08/25/20 History baclofen 20 mg tablet 20 mg PO TID PRN 08/25/20 10/13/21 08/25/20 History budesonide-formoterol HFA 160 See Rx Instructions .ROUTE .COMPLEX 08/25/20 10/13/21 Unknown History mcg-4.5 mcg/actuation aerosol inhaler (Symbicort) buspirone 15 mg tablet 15 mg PO BID 08/25/20 10/13/21 08/25/20 History diclofenac sodium 75 mg 75 mg PO BID 08/25/20 10/13/21 08/25/20 History tablet,delayed release gabapentin 400 mg capsule 600 mg PO BID 04/10/13/21 08/25/20 History glipizide 5 mg tablet 10 mg PO DAILY 08/25/20 10/13/21 08/25/20 History metformin 500 mg tablet,extended 500 mg PO BID 08/25/20 10/13/21 08/25/20 History release 24 hr omeprazole 20 mg capsule,delayed 20 mg PO DAILY 08/25/20 10/13/21 08/25/20 History release prazosin 1 mg capsule 1 mg PO DAILY 08/25/20 10/13/21 08/25/20 History prazosin 2 mg capsule 2 mg PO DAILY 08/25/20 10/13/21 08/25/20 History tamsulosin 0.4 mg capsule 0.4 mg PO DAILY 08/25/20 10/13/21 08/24/20 History acetaminophen 325 mg capsule 325 mg PO Q6H PRN #30 cap 08/29/20 10/13/21 Unknown Rx (Tylenol) ixkfly-lurfvzsu-rnrsmmk 10,000 cap PO TID 10/13/21 10/13/21 Unknown History 10,000-32,000-42,000 unit capsule,delayed rel (Zenpep) wzcxta-tcdpwrpw-ugztntm 15,000 cap PO TID 10/13/21 10/13/21 Unknown History 15,000-47,000-63,000 unit capsule,delayed rel (Zenpep) losartan 25 mg tablet 25 mg PO DAILY 10/13/21 10/13/21 Unknown History tiotropium bromide 18 mcg capsule 2 mcg INHALATION DAILY 10/13/21 10/13/21 Unknown History with inhalation device (Spiriva with HandiHaler) ziprasidone HCl 40 mg capsule 40 mg PO BID 10/13/21 10/13/21 Unknown History Allergies Allergy/AdvReac Type Severity Reaction Status Date / Time No Known Allergies Allergy Verified 07/22/21 13:09 PFSH Acute PFSH: Social History Smoking and tobacco status: current every day smoker (3 pack per day ) Vitals/I&O/Wt Last Vital Signs Temp 98.4 F 10/18/21 07:08 Pulse 81 10/18/21 07:08 Resp 18 10/18/21 07:08 BP 137/70 10/18/21 07:08 Pulse Ox 99 10/18/21 07:08 Physical Exam Narrative: CONSTITUTIONAL: The patient is a normal appearing [] in no apparent distress. GENERAL: Patient in no acute distress. CARDIAC: Regular rate and rhythm. CHEST: Normal inspiratory effort, normal respiratory rate. ABDOMEN: Soft and nontender. SKIN: Clear, warm and intact. NEURO?PSYCH: The patient is alert and oriented to person, place and time. Sensorv /SILT Motor StrengthShoulder abduction C5 5/5Wrist extension C6 5/5Elbow extension C7 5/5Hand Corrosion Control Specialist C8 5/5Finger abduction T15/5 Radial/ Ulnar/ Median n intact LowerSensory (SILT)Motor StrengthHin flexion L2/3Ant/inner thigh 5/5Hip adduction L2/3 5/5Knee extension L4 Lat thigh, 5/5Toe dorsiflexion L5 5/5Ankle dorsiflexion L5/ F14Jwrwvlh flexion S1 5/5 DTRBleeps 2+Triceps 2+Brachioradialis 2+Patellar 2+Achilles 2+ MUSCULOSKELETAL: [] UPPEREXTREMITIES: The patient had full active ROM in fingers, wrist, elbow, and shoulder. The patient demonstrated ability to fully flex/extend/abduct/adduct fingers, make ok sign, cross 2nd/3rd digits, extend 1st digit fully.. Radial pulse 2+, CR<2 seconds. LOWER EXTREMITIES: Pt has full, active ROM of toes, ankle, knee, and hip. Dorsalis pedis/posterior tibialis pulses 2+, CR<2 seconds. SPINE: Skin warm, dry, intact. Data : 10/18/21 07:25 10/13/21 12:45 A&P Assessment and plan (1) Spondylolisthesis at L5-S1 level: L5/S1 PLIF today Status: Acute Attestations Medical Necessity Statement*: failed conservative tx Coding Level of Care Code Acute Icu Staff Nurse for [facility] Fwd Diagnoses Spondylolisthesis at L5-S1 level M43.17
[2021-10-18] MEDS: heparin, porcine 1,000 unit/mL INJ 10 mL 10000 UNIT IRRIGATION (10:07)
[2021-10-18] MEDS: vancomycin 1,000 MG SDV 1000 MG XX (10:07)
--- NOTE | 2021-10-18 11:48 | XR_ITS ---
WS: [id number] C-ARM RADIOGRAPHS LUMBAR SPINE; 3 IMAGES HISTORY: OR PICS COMPARISON: None available. Extremely limited image evaluation quality of the lumbar region. Intraoperative imaging during game warden ior lumbar fusion at L5-S1. Interbody spacer. XR/XR lumbar spine 1V [id number] IMPRESSION: Intraoperative imaging during posterior fusion at L5-S1 with interbody spacer.
--- NOTE | 2021-10-18 11:49 | SUR.PHASEI ---
patient into pacu asleep, simple mask in place with sats at 100%. dressing in place, dry intact, hemovac in place with small amount of blood. pt has no pain per faces. 1151: patient awake but drowsy, simple mask removed. room air sat at 100%
--- NOTE | 2021-10-18 11:55 | P.OP_ITS ---
Operative Report Date of procedure: October 18, 2021 Pre-op diagnosis: Preop Diagnosis Spondylolisthesis L5-S1 with stenosis Post-op diagnosis: same Procedure done: 1. L5/Q4Nqaulaqnm fusion with posterolateral fusion 2. Instrumentation L5/S1 3. Cage at L5/S1 4. Laminectomy L5 5. use of autograft from same incision 6. allograft 7. Bone marrow aspirate from right iliac crest 8. Computer navigation steretactic spine Surgeon: Alejo Yeager Clinical Specialist: Maynor Sharp Clinical Specialist: The surgical technology instructor, Maynor Sharp, PAC was needed for his expertise under the microscope. He was important and necessary throughout the procedure to c omplete in a safe and timely manner. He assisted with patient positioning prepping and draping tissue retraction suctioning of the operative field protection of the dural sac and tissue closure Estimated blood loss (mL): 300 Procedure: 1. L5/V3Uswxomeyg fusion with posterolateral fusion 2. Instrumentation L5/S1 3. Cage at L5/S1 4. Laminectomy L5 5. use of autograft from same incision 6. allograft 7. Bone marrow aspirate from right iliac crest 8. Computer navigation steretactic spine Patient is brought to the operative suite. After undergoing anesthesia, the patient had neuro monitoring attached. Patient was then placed in the prone position on the Jimenez table. All areas of impingement were well-padded. Patient was then prepped and draped in the normal sterile fashion. Skin incision was then made over the L5/S1 space. Subperiosteal dissection was made out to the transverse processes of L5 and S1. Once the exposure was complete attention was then brought to obtaining bone marrow aspirate. The [employer] bone marrow aspirate kit was used to aspirate bone marrow aspirate. This was done by using the sharp probe to open up the bone. Aspiration was performed and then the blunt probe was then used to dissect down to through the bone tunnel. An aspirating well drawn back a millimeter approximately 20 cc of bone marrow aspirate was used. Admixed with the allograft and autograft bone that will be used. The stent was brought to placing the fiducials for the computer navigation. 2 pins were placed in the right iliac crest. These pins were later removed. Once the pins were placed and the fiducial was attached. The C-arm was brought in and spun around the patient. Information from the C-arm was then linked in the computer in order to facilitate using computer navigation to place pedicle screws. The technique for placing the pedicle screws was to use a drill followed by the gearshift probe with computer navigation Followed by the ball probe to feel the superior inferior medial lateral titus of the pedicles. Then placement of the screws with computer navigation Was done at each pedicle. Screws were placed at L5 bilaterally and S1 bilaterally. Next attention was brought to performing the laminectomy ofL5. This was done using the high-speed bur Kerrisons and curettes. Once the lamina was removed and then attention was brought to performing a partial facetectomy on the contralateral side. This was done again using the high-speed bur curettes and Kerrisons. The ligamentum flavum was taken down bilaterally from L5 to S1. Attention was then brought to the facet on the ipsilateral side. The facet was taken down. The S1 nerve was decompressed as it passed around the S1 pedicle. The laminectomy was done for purposes of decompressing the nerve as well as placement of the cage. The L5 nerve was identified as it traversed through the L5/S1 foramen. The thecal sac was identified and retracted. The L5/S1 disc base was identified. Using a knife the disc base was opened. And then sequential zak were placed. The first shaver was a 6 and the last shaver was a 8. Using a pituitary and down going curette the endplates were scraped and disc material was removed from the space. Once adequate decompression of the disc base was felt to be had. Osteoamp sponge was packed into the anterior aspect of the disc base. Then a size 8 cage from [employer] was placed after packing osteoamp into the cage. While placing the cage the thecal sac and S1 nerve was protected. C arm was used to ensure that the cages placed in the appropriate position. Attention was then brought to attaching the rods to the screws placed in the L5 and S1 bilaterally. Caps were torqued into position. Locking the construct in place. Wound was copiously irrigated and then attention was brought to decorticating the facets and transverse processes laterally. Bone that was taken down from the lamina was used along with osteoamp fibers and sponges were packed into the lateral gutters along the facet joints. This was done bilaterally. Wound was then closed in a layered fashion starting with the thoracolumbar fascia. 0-vicryl was used the sub cutaneous tissue was closed with 2-0 vicryl and skin with 4-0 monocryl. Glue was then used to seal the skin and a steril dressing was applied. Patient was then placed in the supine position. The endotracheal tube was removed and patient was transferred to the PACU in stable condition.
--- NOTE | 2021-10-18 12:00 | SUR.PHASEI ---
patient awake. laying on right side. patient has steven in place from OR. It is stat locked to right leg and draining clear pale yellow urine
--- NOTE | 2021-10-18 12:18 | SUR.PHASEI ---
patient says he does not have any pain at this time. patient is awake and alert
--- NOTE | 2021-10-18 12:34 | SUR.PHASEI ---
Patient is ready to be transported to 2nd floor. Report attempted but nurse unavailable. patient switched to extended care for holding until report can be given and room is ready.
--- NOTE | 2021-10-18 12:52 | SUR.EXTENDED ---
report called to lourdes ARREOLA.
--- NOTE | 2021-10-18 13:22 | SUR.PHASEI ---
1250 PT SLEEPING QUIETLY, AWAKES TO VOICE EASILY, PT DENIES PAIN AND NAUSEA, DRESSING D/I REPORT CALLED TO FLOOR PER MARIO ARREOLA, PT CARE ASSUMED BY INOCENTE ARREOLA.
--- NOTE | 2021-10-18 13:42 | PC.PHAR ---
Contacted [facility] to verify pt has 2 prescriptions and takes 2 separate doses of zenpep and prazosin at the same frequency. confirmed both.
[2021-10-18] MEDS: morphine 4 mg/mL SDV 1 mL 2 MG IVP (14:14)
[2021-10-18] MEDS: lactated ringers 1,000 ML 90 ML IV (14:22)
[2021-10-18] MEDS: lipase-protease-amylase Capsule 5 EACH PO ×2 (15:59→20:35)
[2021-10-18] MEDS: HYDROcodone-acetaminophen 5-325 mg Tablet PO ×2 (16:00→23:21)
--- NOTE | 2021-10-18 16:03 | ANE.PACU2 ---
Inpatient post-anesthesia follow up: Airway intact: Yes Vital signs: Temperature 97.8 F Pulse Rate 50 Respiratory Rate 18 Blood Pressure 105/65 Pulse Oximetry 99 Oxygen Delivery Me thod Room Air Oxygen Flow Rate 18 Fraction of Inspir ed Oxygen Hydration adequate: Yes Nausea and vomiting: No Pain level: 2 Mental status: Baseline
[2021-10-18] MEDS: BuSPIRONE 10 mg Tablet PO (17:35)
[2021-10-18] MEDS: gabapentin 300 mg Capsule 600 MG PO (17:35)
[2021-10-18] MEDS: docusate sodium 100 mg Capsule PO (17:35)
[2021-10-18] MEDS: ziprasidone hcl 40 mg Capsule PO (17:35)
[2021-10-18] MEDS: metformin XR 500 MG Tablet PO (17:35)
[2021-10-18] MEDS: ketorolac 30 mg/mL INJ IVP (17:57)
[2021-10-18] MEDS: prazosin 1 mg Capsule 3 MG PO (20:35)
[2021-10-19] VITALS: BP 112/58; PULSE 81; RESP 17; TEMP 36.7; O2SAT 96
[2021-10-19] MEDS: lactated ringers 1,000 ML 90 ML IV (01:03)
[2021-10-19] MEDS: ondansetron 2 mg/ML SDV 2 mL 4 MG IVP (01:09)
[2021-10-19] MEDS: ketorolac 30 mg/mL INJ IVP ×2 (01:09→08:36)
[2021-10-19 04:00] VITALS: BP 112/63; PULSE 75; RESP 16; TEMP 36.9; O2SAT 97
--- NOTE | 2021-10-19 05:02 | PC.NURSE ---
patient verbalized having had erection for the past 8 hours and was embarrassed to let staff know, verbalized thinking it is due to the catheter since he has ED. requested for steven to be removed, Dr. Yeager notified and agreed to remove cath, cath removed, patient informed to let staff now if erection does not go down.
[2021-10-19] MEDS: enoxaparin 40 mg/0.4 mL Syringe SUBCUT (06:02)
[2021-10-19 07:36] VITALS: BP 124/77; PULSE 100; RESP 18; TEMP 36.9; O2SAT 96
--- NOTE | 2021-10-19 07:48 | PM.PN ---
Subjective Subjective: POD 1 Patient reports some improvement of back pain although he has peripheral neuropathy in his legs is difficult to ascertain any relief at this time. He denies any chest pain, shortness of breath or headaches. He reports priapism following surgery but admits that it is gone down in the last few hours. Vitals/I&O/Wt Last Vital Signs Temp 98.4 F 10/19/21 07:36 Pulse 100 10/19/21 07:36 Resp 18 10/19/21 07:36 BP 124/77 10/19/21 07:36 Pulse Ox 96 10/19/21 07:36 10/18/21 10/19/21 10/19/21 22:59 06:59 14:59 Intake Total 1020 / 2370 1131.5 / 3501.5 Output Total 645 / 1495 510 / 2005 Balance 375 / 875 621.5 / 1496.5 Weight last 48 hrs Weight 158 lb Physical Exam Narrative: Patient presents alert and oriented x3 with a good general appearance normal mood and affect. Normal coordination normal stability. Mild tenderness around the incisional site with the incision appear to be in dry with Hemovac intact. No signs of erythema or drainage. No signs of infection. Patient denies any fevers or chills. 4/5 motor strength both lower extremities with negative straight leg raise bilaterally. Calves are supple no medial thigh tenderness. Pulses are 2+ at the dorsalis pedis and posterior tibial region. Good capillary refill throughout normal sensation light touch both lower extremities. Urinary Catheter Management: [place]: Cath Placed During This Visit: yes, but has since been removed by the nurse Reason for Continuing Indwelling Catheter: Decision to DC Catheter Urinary Catheter Date of Insertion: 10/18/21 Urinary Catheter Time of Insertion: 09:30 Date Urinary Catheter Removed: 10/19/21 Time Urinary Catheter Discontinued: 05:15 Data : 10/18/21 07:25 10/13/21 12:45 A&P Assessment and plan (1) Status post lumbar spinal fusion: At this point will encourage physical therapy to work with mobilization. He will need a home walker. As long as his priapism resolves we will discharge home. We will see him back in the office in 1 week's time. He will call if he has problems. Encourage incentive spirometry at home. Status: Acute Attestations Medical Necessity Statement*: Discharge home today if priapism resolves. Coding Level of Care Code Acute Photocopier Technician for [facility] Fwd Diagnoses Status post lumbar spinal fusion Z98.1
[2021-10-19 08:00] VITALS: PULSE 84; RESP 18; O2SAT 97
--- NOTE | 2021-10-19 08:04 | PC.NURSE ---
pt complaining of erection for multiple hours. physician notified.
[2021-10-19] MEDS: ziprasidone hcl 40 mg Capsule PO (08:36)
[2021-10-19] MEDS: metformin XR 500 MG Tablet PO (08:37)
[2021-10-19] MEDS: lipase-protease-amylase Capsule 5 EACH PO (08:37)
[2021-10-19] MEDS: losartan 50 mg Tablet 25 MG PO (08:38)
[2021-10-19] MEDS: gabapentin 300 mg Capsule 600 MG PO (08:38)
[2021-10-19] MEDS: tamsulosin 0.4 mg Capsule PO (08:38)
[2021-10-19] MEDS: docusate sodium 100 mg Capsule PO (08:38)
[2021-10-19] MEDS: BuSPIRONE 10 mg Tablet PO (08:39)
[2021-10-19] MEDS: pantoprazole DR 40 mg Tablet PO (08:39)
[2021-10-19] MEDS: atorvastatin 40 mg Tablet PO (08:40)
--- NOTE | 2021-10-19 10:24 | PC.CHAP ---
Pastoral Care Encounter/Spiritual Assessment Type of Contact [] Declined concert or lecture hall manager visit [] Patient/Family/Request visit [] Outpatient visit [] Follow-up visit [] Physician referral [] Code/Alert [x] Routine visit [] Staff referral [] Actively dying [] Patient sleeping [] Family support [] [x] Out of room [] Palliative care [] [] Receiving care in room [] Pre-surgical visit [] Trauma [] Long length of stay [] ICU visit [] Other: Relational/Emotional Strength [] Patient feels connected with others/family/visitors/staff [] Distress [] Loneliness/isolation [] Abandonment Spirituality of Patient [] Person of Arabella [] Attends Voodoo of their Arabella [] Believes in Prayer [] Reads Bible or Jain materials [] There are Spiritual issues to be addressed Electronic Gluing Machine Operator Interventions [] Prayer [] Active listening [] Non-anxious presence [] Spiritual/emotional support [] Crisis/trauma care [] Spiritual counseling [] Bereavement support [] Provided bereavement packet [] Provided Bible/devotional materials [] Provided toy/stuffed animal, coloring book to patient or family member [] Provided Communion [] Anointing/[place] [] Salvation [] Completed spiritual assessment [] Other: Impact on Illness or Injury [] Angry [] Fearful [] Anxious [] Often cries [] Exhaustion [] Unable to work [] Unable to attend zoroastrianism [] Unable to walk/stand [] Unable to read [] Unable to drive [] Unable to eat/drink [] Unable to sleep [] Unable to be with family [] Patient intubated [] Other: Summary Time spent with patient
--- NOTE | 2021-10-19 10:36 | PM.DCS ---
Discharge Providers Date of Admission: 10/18/21 13:06 Date of Discharge: October 19, 2021 Attending Provider at Admission: Alejo Yeager DO Attending Provider at Discharge: Alejo Yeager DO Primary Care Provider: Erika Morley Diagnoses at Discharge Discharge Diagnosis (1) Status post lumbar spinal fusion: Status: Acute Reason for Visit Reason for Visit: SPONDYLOLISTHESIS Hospital Course Hospital Course uneventful Physical Exam Urinary Catheter Management: [place]: Cath Placed During This Visit: yes, but has since been removed by the nurse Reason for Continuing Indwelling Catheter: Decision to DC Catheter Urinary Catheter Date of Insertion: 10/18/21 Urinary Catheter Time of Insertion: 09:30 Date Urinary Catheter Removed: 10/19/21 Time Urinary Catheter Discontinued: 05:15 Discharge Data Studies Completed and Pending Completed Studies During Hospitalization Category Date Time Status XR lumbar spine 1V [id number] Routine Exams 10/18/21 11:48 Completed Radiology Impressions Lumbar Spine X-Ray 10/18/21 11:48 IMPRESSION: Intraoperative imaging during posterior fusion at L5-S1 with interbody spacer. Laboratory Results WBC 10.7 10^3/uL (4.0-10.0) H 10/18/21 07:25 RBC 4.90 10^6/uL (4.1-5.3) 10/18/21 07:25 Hgb 13.8 g/dL (11.7-16.6) 10/18/21 07:25 Hct 40.0 % (42.0-52.0) L 10/18/21 07:25 MCV 81.6 fl (80-94) 10/18/21 07:25 MCH 28.2 pg (28.0-34.0) 10/18/21 07:25 MCHC 34.5 g/dL (30.0-36.0) 10/18/21 07:25 RDW 12.6 % (12.1-15.1) 10/18/21 07:25 Plt Count 263 10^3/cmm (130-400) 10/18/21 07:25 MPV 10.9 fL (7.4-10.4) H 10/18/21 07:25 Neut % (Auto) 74.6 % 10/18/21 07:25 Lymph % (Auto) 16.9 % 10/18/21 07:25 Pope % (Auto) 5.3 % 10/18/21 07:25 Eos % (Auto) 2.3 % 10/18/21 07:25 Baso % (Auto) 0.5 % 10/18/21 07:25 Neut # (Auto) 7.95 10^3/uL (1.8-7.7) H 10/18/21 07:25 Lymph # (Auto) 1.8 10^3/uL (0.8-4.8) 10/18/21 07:25 Pope # (Auto) 0.6 10^3/uL (0.2-0.9) 10/18/21 07:25 Eos # (Auto) 0.3 10^3/uL (0.0-0.8) 10/18/21 07:25 Baso # (Auto) 0.1 10^3/uL (0.0-0.1) 10/18/21 07:25 Nucleated RBC % (auto) 0 % 10/18/21 07:25 Nucleated RBCs # 0.0 /100WBC 10/18/21 07:25 Sodium 140 mmol/L (136-145) 10/13/21 12:45 Potassium 4.2 mmol/L (3.5-5.1) 10/13/21 12:45 Chloride 105 mmol/L (98-107) 10/13/21 12:45 Carbon Dioxide 26 mmol/L (22-29) 10/13/21 12:45 Anion Gap 13.2 (5-19) 10/13/21 12:45 BUN 11 mg/dL (8-23) 10/13/21 12:45 Creatinine 0.6 mg/dL (0.7-1.2) L 10/13/21 12:45 GFR Calculation 137.4 mL/min (90-130) H 10/13/21 12:45 Glucose 97 mg/dL (65-115) 10/13/21 12:45 POC Glucose 178 mg/dL (70-110) H 10/18/21 07:23 Calculated Osmolality 289 mOsm/kg (285-295) 10/13/21 12:45 Calcium 9.4 mg/dL (8.5-10.5) 10/13/21 12:45 Blood Type O Positive 10/18/21 07:25 Rho(D) Type Positive 10/18/21 07:25 Antibody Screen Negative 10/18/21 07:25 Vitals Last Vital Signs Temp 98.4 F 10/19/21 07:36 Pulse 84 10/19/21 08:00 Resp 18 10/19/21 08:00 BP 124/77 10/19/21 07:36 Pulse Ox 97 10/19/21 08:00 Discharge Plan Discharge Patient Disposition: Home Condition: Stable Prescriptions: New hydrocodone-acetaminophen 5-325 mg tablet 1 - 2 tab PO .Q4-6H Qty: 40 0RF Continued atorvastatin 40 mg tablet 40 mg PO DAILY 0RF prazosin 1 mg capsule 1 mg PO DAILY 0RF Rx Instructions: TAKE WITH 2 MG TAB TO MAKE 3 MG DAILY gabapentin 400 mg capsule 600 mg PO BID 0RF baclofen 20 mg tablet 20 mg PO TID PRN (Reason: UNKNOWN) 0RF tamsulosin 0.4 mg capsule 0.4 mg PO DAILY 0RF omeprazole 20 mg capsule,delayed release(DR/EC) 20 mg PO DAILY 0RF diclofenac sodium 75 mg tablet,delayed release (DR/EC) 75 mg PO BID 0RF albuterol sulfate [Ventolin HFA] 90 mcg/actuation HFA aerosol inhaler 2 puff inhalation Q6H PRN (Reason: Wheezing) 0RF metformin 500 mg tablet extended release 24 hr 500 mg PO BID 0RF glipizide 5 mg tablet 10 mg PO DAILY 0RF prazosin 2 mg capsule 2 mg PO DAILY 0RF Rx Instructions: TAKE WITH 1 MG TAB TO MAKE 3 MG DAILY buspirone 15 mg tablet 15 mg PO BID 0RF budesonide-formoterol [Symbicort] 160-4.5 mcg/actuation HFA aerosol inhaler See Rx Instructions .ROUTE .COMPLEX 0RF Rx Instructions: inhaled, USE DIRECTED acetaminophen [Tylenol] 325 mg capsule 325 mg PO Q6H PRN (Reason: fever or pain) Qty: 30 0RF losartan 25 mg tablet 25 mg PO DAILY 0RF ziprasidone HCl 40 mg capsule 40 mg PO BID 0RF Spiriva with HandiHaler 18 mcg capsule, w/inhalation device 2 mcg INHALATION DAILY 0RF Zenpep 10,000-32,000 -42,000 unit capsule,delayed release(DR/EC) 10,000 cap PO TID 0RF Zenpep 15,000-47,000 -63,000 unit capsule,delayed release(DR/EC) 15,000 cap PO TID 0RF Discharge Orders: Discharge Order (Routine); Ordered 10/19/21 Ordered By: Alejo Yeager Other Ambulatory Orders: DME: Walker (Order) Location: None Selected Ordered By: Alejo Yeager Referrals: Alejo Yeager DO [Physician] - 10/26/21 9:15 am Discharge Diet: Advance as tolerated Discharge Activity: Limit activity as instructed Patient Instructions: Anterior Posterior Spinal Fusion (DC), Opioid Safety Activity Restrictions/Additional Instructions: Thank you for [facility] for your care! The following is a list of instructions, from your provider, to follow upon your discharge to ensure you have the optimal recovery from your recent injury orsurgery. Follow-up care is a johnson part of your treatment and safety. Be sure to make and go to all appointments, and call your doctor if you are having problems. If you do not already have a follow-up appointment made, call Dr. Yeager office in the next 1-3 days to make follow up appointment for 1 weeks at [phone]. It is also a good idea to know your test results and keep a list of the medicines you take. Medications will be prescribed for you at your provider's discretion. These medications are to be used as instructed; if they are taken more often that prescribed they will not be refilled early and in most cases will not be refilled at all. > When a refill is needed,you should contact bahman castillo 2-3 business days before your prescription runs out. Medications will NOT be refilled by intervention teacher providers after hours! > Many pain medications contain Tylenol (Acetaminophen). Do not consume more than 4,000 mg of Tylenol per day in total with any combination ofmedications. > Pain medications can cause constipation. Please use an over the counter stool softener as directed, while taking pain medications. Consulty our local pharmacist with questions or recommendations on stool softeners. If constipation persists, contact our office or your primary care provider. > While under our care,you are not to receive pain medications or other controlled substances from any other provider unless our office is notified and approves. Any attempts to do so will result in refusal to prescribe any further pain medications and possible dismissal from our practice. ?Keep dressing on at all times will change in the office ? Showering is permitted, however we ask that you do not take a bath, sit in a whirlpool / Jacuzzi, or go swimming for 1 month. For only the first 2 days after surgery, lt wilt be necessary for you to cover your wound/dressing with plastic and tape to keep it dry. ? Walking is essential for the healing process after surgery. We would like you to slowly advance your walking. This should be done on relatively flat clear ground (inside or out) or can be done on a treadmill. Remember this goal does not have to happen all at once, slowly increase your distance and duration. This can be broken into more more than one walk per day as tolerated. Patients who walk as directed after surgery rarely require Physical Therapy. In the unlikely event this issue arises your provider will direct hospital staff to make the appropriate arrangements. ? No lifting over 5 pounds {a gallon of milk) or bending/twisting until further notice. Each of these activities places an unnecessary amount of stress onto the body and can impede the delicate healing process. > Instead of bending at the waist, keep your back straight and bend at the knees. > Instead of twisting your torso, keep your back straight and turn your entire body with your feet. ? You may sleep in any position which makes you comfortable. Many patients find comfort sleeping in a reclining chair. It is not abnormal to have difficulty sleeping for the first several weeks following your surgery. We recommend trying Benadry! or Tylenol PM as directed to help with your sleeping difficulties. Both medications are over the counter and available withoutprescription. ? NO SMOKING!!! Smoking dramatically increases the probability of developing postoperative wound infections. ? Common complaints after lumbar and/or thoracic spine surgery include, but are not limited to: numbness and/or tingling in the legs, pain around the incision and surrounding tissues, muscle spasms, or stiffness of the middle to low back. Contact our office if these symptoms persist or if an acute change occurs. ? No driving for the first 3-5days, and not while taking narcotics [] until seen at your follow-up appointment and cleared. There are no restrictions for riding on short trips, however if you take a longer trip, arrangements should be made to make regular stops to get out of the vehicle and stretch . ? Swelling is an unfortunate event that will take place with any surgery and is the primary source of your postoperative discomfort. While walking and regular approved activities helps control inflammation, there are additional steps you can take to minimizeswelling. > Place ice over the surgical site and surrounding tissue for twenty minutes, followed by applying a low/medium heat (heating pad) for an additional twenty minutes every 1-2 hours as needed for painrelief. > You may use of over the counter anti-inflammatory medications (Ibuprofen, Motrin, Aleve, Advil, etc) as directed on the package label. These types of medicines wm significantly reduce the amount of discomfort you experience after surgery from swelling. It should be noted that if you have and allergy to any of these medications, or a history of ulcers or kidney disease you should consult you primary care provider prior to starting these medications. Discharge Attestations Time Spent in Discharge Care*: less than 30 min Status at Discharge: Cognitive status at discharge: cognitively intact, Behavioral status at discharge: cooperative, Quality Metrics Clinical Quality Measures [ No reported AMI, CVA or VTE this stay] Coding Level of Care Code Acute [facility] note Diagnoses Status post lumbar spinal fusion Z98.1
--- NOTE | 2021-10-19 10:48 | PC.NURSE ---
hemovac pulled. drsx applied. clean, dry intact.
[2021-10-19 11:59] VITALS: BP 116/60; PULSE 96; RESP 16; TEMP 37.2; O2SAT 99
[2021-10-19 12:28] VITALS: BP 116/60; PULSE 96; RESP 16; TEMP 37.2; O2SAT 99
--- NOTE | 2021-10-19 12:55 | PC.NURSE ---
pt inquiring about back brace. physician notified. physician did not order back brace for discharge.
== END 2021-10-19 14:47 | disposition home or self-care (01) | DRG 455 ==
LOC: MEDSURG 13:11
PROVIDERS: Anesthesiology; Admitting Provider Orthopaedic Surgery; PCP Nurse Practitioner Family; Visit Provider Orthopaedic Surgery
PROC: 0SG30AJ Fusion of Lumbosacral Joint with Interbody Fusion Device, Posterior Approach, Anterior Column, Open Approach (ICD-10-PCS; CPT 22612; principal; 2021-10-18 08:50)
DX: M43.17 Spondylolisthesis, lumbosacral region (principal); F17.200 Nicotine dependence, unspecified, uncomplicated; G62.9 Polyneuropathy, unspecified
CPT/HCPCS: 36415; 36416; 51702; 72020; 76000; 80048; 82962; 85025; 86850; 86900; 93005; 94640; 96372; 97116; 97161; 97530; C1713; J0330; J1100; J1170; J1644; J1650; J1885; J2270; J2370; J2405; J2704; J3010; J3370; J3490; J7030

== ENCOUNTER 2021-10-27 12:07 | Emergency (ER) | payer MEDICARE, MEDICAID, SELFPAY ==
--- NOTE | 2021-10-27 12:15 | ED_ITS ---
HPI - Back Pain/Injury General: Chief Complaint: General Medical Stated Complaint: BACK SURGERY, SUTURE REMOVAL Time Seen by Provider: 10/27/21 12:10 Source: patient Mode of arrival: EMS Limitations: no limitations History of Present Illness: 61-year-old male presents emergency room with complaint of swelling and redness around the incision site from his lumbar laminectomy from 9 days ago. He went to the local clinic and they did not want to remove the sutures because the concern was infected and sent him to the ER. He is doing well from the perspective of his back surgery. Minimal discomfort. Denies any fever sweats or chills no dysuria urgency or frequency no urinary retention or fecal incontinence. Pertinent past history: prior back pain Onset (ago): day(s) Timing: constant Location: lumbar spine Radiation: none Exacerbating factors: none Associated symptoms: Deny abdominal pain, arthralgias, chills, change in bowel habits, difficulty walking, dysuria, fatigue, fecal incontinence, fever(s), hematuria, myalgias, nausea, numbness, syncope, tingling/numbness/burning, urinary frequency, urinary urgency, vomiting or weakness Review of Systems Const: Denies: fever(s), chills, fatigue or malaise ENMT: Denies: throat pain, ear or mastoid pain, nasal discharge or nasal congestion Card: Denies: syncope Resp: Denies: dyspnea, productive cough or non-productive cough GI: Denies: abdominal pain, nausea, vomiting, fecal incontinence or change in bowel habits : Denies: dysuria, urinary urgency or hematuria Skin/Breast: Denies: rash or pruritus Neuro: Denies: difficulty walking PFS ED PFSH: Medical History Acute pancreatitis COPD (chronic obstructive pulmonary disease) Diabetes Myocardial infarct Surgical History H/O cervical spine surgery Status post lumbar spinal fusion Social History Smoking and tobacco status: current every day smoker (3 pack per day ) Physical Exam Const: COMMON NORMALS: no acute distress GENERAL APPEARANCE: cooperative and comfortable ORIENTATION/CONSCIOUSNESS: Yes awake, Yes oriented to person, Yes oriented to place and Yes oriented to time HENMT: COMMON NORMALS: normocephalic, atraumatic and hearing grossly normal bilaterally HEAD & SCALP: normocephalic and atraumatic Neck/C-Spine: COMMON NORMALS: no JVD Lymph: LYMPHATIC: no lymphadenopathy noted and no lymphedema noted Resp: COMMON NORMALS: normal respiratory effort, No retractions, No use of accessory muscles and clear to auscultation bilaterally AUSCULTATION: clear to auscultation bilaterally Cardio: COMMON NORMALS: no JVD, regular rate, regular rhythm and No murmurs present (Cardio) RATE: regular rate RHYTHM: regular rhythm GI: COMMON NORMALS: Soft to palpation and No hepatosplenomegaly present AUSCULTATION: Yes normoactive bowel sounds PALPATION: Yes Soft to palpation, No Tenderness to palpation present (GI), No Guarding due to palpation present (GI) and Yes No hepatosplenomegaly present Back/Pelvis: OTHER: Dry eschar present at the incision site no drainage with palpation and attempts to express any fluid. There is very superficial dehiscence at a few levels relatively minor. 5 horizontal mattress sutures removed. No drainage no further dehiscence. Extremity: COMMON NORMALS: normal to inspection, capillary refill normal, no clubbing, cyanosis or edema, no calf tenderness and no pedal edema Neuro: SENSORIUM/ORIENTATION: Yes oriented to person, Yes oriented to place and Yes oriented to time Skin: COMMON NORMALS: no rashes or lesions noted GENERAL SKIN EXAM: no rashes or lesions noted Course Vital Signs: Vital signs: Vital Signs Temperature 97.8 F 10/27/21 12:28 Pulse Rate 89 10/27/21 12:28 Respiratory Rate 14 10/27/21 12:28 Blood Pressure 124/65 10/27/21 12:28 Pulse Oximetry 98 10/27/21 12:28 MDM - Back Pain/Injury Medical Decision Making CT unremarkable. His white count is little elevated him to go ahead and start him on Bactrim DS twice daily. His CRP is relatively low I doubt do not believe there is a significant infection there we will have him follow-up with Dr. Yeager. Called discussed Dr. omalley and he agreed. Return if he has further problems. Medical Records I reviewed the patient's medical records. Labs I reviewed the patient's lab results. : 10/27/21 13:05 10/27/21 13:[address] 10/27/21 12:43 IMPRESSION: 1. Recent postoperative changes pedicle screw fixation L5-S1 with interbody fusion graft and laminectomy defects. Pedicle screws appear in good position. Immature interbody fusion graft. Stable grade 1 anterolisthesis. 2. Small amount of fluid and edema within the laminectomy defects. Small amount of fluid and edema along the surgical corridor at L4 and L5 dorsally in the subcutaneous and paraspinous soft tissues. No well-defined drainable abscess or fluid collection. 3. Spinal canal appears patent. No high-grade central canal stenosis. 4. No other significant changes compared to the preoperative imaging. Laboratory Results WBC 15.5 10^3/uL (4.0-10.0) H 10/27/21 13:05 RBC 4.33 10^6/uL (4.1-5.3) 10/27/21 13:05 Hgb 12.2 g/dL (11.7-16.6) 10/27/21 13:05 Hct 34.6 % (42.0-52.0) L 10/27/21 13:05 MCV 79.9 fl (80-94) L 10/27/21 13:05 MCH 28.2 pg (28.0-34.0) 10/27/21 13:05 MCHC 35.3 g/dL (30.0-36.0) 10/27/21 13:05 RDW 12.7 % (12.1-15.1) 10/27/21 13:05 Plt Count 399 10^3/cmm (130-400) 10/27/21 13:05 MPV 10.1 fL (7.4-10.4) 10/27/21 13:05 Neut % (Auto) 80.0 % 10/27/21 13:05 Lymph % (Auto) 10.8 % 10/27/21 13:05 [place]aver % (Auto) 6.6 % 10/27/21 13:05 Eos % (Auto) 1.3 % 10/27/21 13:05 Baso % (Auto) 0.3 % 10/27/21 13:05 Neut # (Auto) 12.45 10^3/uL (1.8-7.7) H 10/27/21 13:05 Lymph # (Auto) 1.7 10^3/uL (0.8-4.8) 10/27/21 13:05 [place]aver # (Auto) 1.0 10^3/uL (0.2-0.9) H 10/27/21 13:05 Eos # (Auto) 0.2 10^3/uL (0.0-0.8) 10/27/21 13:05 Baso # (Auto) 0.0 10^3/uL (0.0-0.1) 10/27/21 13:05 Nucleated RBC % (auto) 0 % 10/27/21 13:05 Nucleated RBCs # 0.0 /100WBC 10/27/21 13:05 Sodium 132 mmol/L (136-145) L 10/27/21 13:05 Potassium 3.4 mmol/L (3.5-5.1) L 10/27/21 13:05 Chloride 97 mmol/L (98-107) L 10/27/21 13:05 Carbon Dioxide 24 mmol/L (22-29) 10/27/21 13:05 Anion Gap 14.4 (5-19) 10/27/21 13:05 BUN 19 mg/dL (8-23) 10/27/21 13:05 Creatinine 0.6 mg/dL (0.7-1.2) L 10/27/21 13:05 GFR Calculation 137.4 mL/min (90-130) H 10/27/21 13:05 Glucose 247 mg/dL (65-115) H 10/27/21 13:05 Calculated Osmolality 285 mOsm/kg (285-295) 10/27/21 13:05 Calcium 9.2 mg/dL (8.5-10.5) 10/27/21 13:05 Total Bilirubin 0.3 mg/dL (0.15-1.2) 10/27/21 13:05 AST 130 U/L (0-40) H 10/27/21 13:05 ALT 179 U/L (0-41) H 10/27/21 13:05 Alkaline Phosphatase 79 IU/L (40-130) 10/27/21 13:05 C-Reactive Protein 15.2 mg/L (0.0-4.9) H 10/27/21 13:05 Total Protein 6.9 g/dL (6.6-8.7) 10/27/21 13:05 Albumin 3.9 g/dL (3.5-5.2) 10/27/21 13:05 Globulin 3.0 g/dL (1.3-4.6) 10/27/21 13:05 Discharge Plan Discharge Patient Disposition: Home Clinical Impression: Status post lumbar spinal fusion Condition: Stable Prescriptions: New Bactrim DS 800-160 mg tablet 1 tab PO DAILY 7 Days 0RF No Action atorvastatin 40 mg tablet 40 mg PO DAILY 0RF prazosin 1 mg capsule 1 mg PO DAILY 0RF Rx Instructions: TAKE WITH 2 MG TAB TO MAKE 3 MG DAILY gabapentin 400 mg capsule 600 mg PO BID 0RF baclofen 20 mg tablet 20 mg PO TID PRN (Reason: UNKNOWN) 0RF tamsulosin 0.4 mg capsule 0.4 mg PO DAILY 0RF omeprazole 20 mg capsule,delayed release(DR/EC) 20 mg PO DAILY 0RF diclofenac sodium 75 mg tablet,delayed release (DR/EC) 75 mg PO BID 0RF albuterol sulfate [Ventolin HFA] 90 mcg/actuation HFA aerosol inhaler 2 puff inhalation Q6H PRN (Reason: Wheezing) 0RF metformin 500 mg tablet extended release 24 hr 500 mg PO BID 0RF glipizide 5 mg tablet 10 mg PO DAILY 0RF prazosin 2 mg capsule 2 mg PO DAILY 0RF Rx Instructions: TAKE WITH 1 MG TAB TO MAKE 3 MG DAILY buspirone 15 mg tablet 15 mg PO BID 0RF budesonide-formoterol [Symbicort] 160-4.5 mcg/actuation HFA aerosol inhaler See Rx Instructions .ROUTE .COMPLEX 0RF Rx Instructions: inhaled, USE DIRECTED acetaminophen [Tylenol] 325 mg capsule 325 mg PO Q6H PRN (Reason: fever or pain) Qty: 30 0RF losartan 25 mg tablet 25 mg PO DAILY 0RF ziprasidone HCl 40 mg capsule 40 mg PO BID 0RF Spiriva with HandiHaler 18 mcg capsule, w/inhalation device 2 mcg INHALATION DAILY 0RF Zenpep 10,000-32,000 -42,000 unit capsule,delayed release(DR/EC) 10,000 cap PO TID 0RF Zenpep 15,000-47,000 -63,000 unit capsule,delayed release(DR/EC) 15,000 cap PO TID 0RF hydrocodone-acetaminophen 5-325 mg tablet 1 - 2 tab PO .Q4-6H Qty: 40 0RF Discharge Orders: Discharge ED (Routine); Ordered 10/27/21 Ordered By: Giancarlo Perry Referrals: Erika Morley FNP-C [Referring] - Discharge Diet: Usual diet Discharge Activity: Resume usual activity Patient Instructions: Opioid Safety Activity Restrictions/Additional Instructions: Call to make follow-up appoint with Dr. Yeager within the next week. Coding Level of Care Code ED Cushion Mat Maker for Toño Adkins
[2021-10-27 12:28] VITALS: BP 124/65; PULSE 89; RESP 14; TEMP 36.6; O2SAT 98; BMI 22.1
--- NOTE | 2021-10-27 12:43 | CT_ITS ---
WS: [id number] CT LUMBAR SPINE TECHNIQUE: Contrast-enhanced CT of the lumbar spine with coronal and sagittal reformatted images. CLINICAL INFORMATION: swelling back/post op COMPARISON: CT April 16, 2021 DLP: 1171.[address] scans at [facility] use at least one of these dose optimization techniques: automated e xposure control; mA and/or kV adjustment per patient size (includes targeted exams where dose is matc hed to clinical indication); or iterative reconstruction. FINDINGS: Pedicle screw fixation L5-S1 with interbody fusion graft. Pedicle screws appear in good position. Imm ature interbody fusion graft. Interconnecting rods appear intact. Immature dorsolateral bone graft ma terial. Slight anterolisthesis L5 on S1 is unchanged. Laminectomy defects lower lumbar spine. Small a mount of fluid and edema along the surgical incision site and laminectomy defects. Small amount of fl uid in the subcutaneous soft tissues. No well-defined drainable fluid collections. Lung bases are well aerated. Bilateral renal cysts. Adrenal glands are normal. L1-L2: Normal. L2-L3: Normal. L3-L4: Mild annular bulging. Slight narrowing of the subarticular recess bilaterally. Spinal canal an d foramen are patent. L4-L5: Mild annular bulging. Slight effacement of ventral thecal sac. Mild facet arthropathy. Spinal canal and foramen are patent. Slight narrowing of the RIGHT subarticular recess. L5-S1: Postoperative changes pedicle screw fixation. Beam hardening artifact degrades images. Stable grade 1 anterolisthesis. Bilateral bony foraminal narrowing CT/CT lumbar spine w con [id number] IMPRESSION: 1. Recent postoperative changes pedicle screw fixation L5-S1 with interbody fu porfirio graft and laminectomy defects. Pedicle screws appear in good position. Imm ature interbody fusion graft. Stable grade 1 anterolisthesis. 2. Small amount of fluid and edema within the laminectomy defects. Small amoun t of fluid and edema along the surgical corridor at L4 and L5 dorsally in the s ubcutaneous and paraspinous soft tissues. No well-defined drainable abscess or fluid collection. 3. Spinal canal appears patent. No high-grade central canal stenosis. 4. No other significant changes compared to the preoperative imaging.
[2021-10-27 13:12] LABS: Basophils % 0.3 %; Eosinophils # 0.2 10^3/uL (0.0-0.8); Eosinophils % 1.3 %; Hematocrit 34.6 % (42.0-52.0); Hemoglobin 12.2 g/dL (11.7-16.6); Lymphocytes # 1.7 10^3/uL (0.8-4.8); Lymphocytes % 10.8 %; Mean Corpuscular HGB Conc 35.3 g/dL (30.0-36.0); Mean Corpuscular Hemoglobin 28.2 pg (28.0-34.0); Mean Corpuscular Volume 79.9 fl (80-94); Mean Platelet Volume 10.1 fL (7.4-10.4); Monocytes % 6.6 %; Neutrophils # 12.45 10^3/uL (1.8-7.7); Nucleated Red Blood Cells % 0 %; Platelet Count 399 10^3/cmm (130-400); Red Blood Count 4.33 10^6/uL (4.1-5.3); Red Cell Distribution Width 12.7 % (12.1-15.1); White Blood Count 15.5 10^3/uL (4.0-10.0)
[2021-10-27 13:30] LABS: Alanine Aminotransferase 179 U/L (0-41); Albumin Level 3.9 g/dL (3.5-5.2); Alkaline Phosphatase 79 IU/L (40-130); Anion Gap 14.4 (5-19); Aspartate Amino Transferase 130 U/L (0-40); Blood Urea Nitrogen 19 mg/dL (8-23); C Reactive Protein 15.2 mg/L (0.0-4.9); Calcium 9.2 mg/dL (8.5-10.5); Carbon Dioxide 24 mmol/L (22-29); Chloride 97 mmol/L (98-107); Glomerular Filtration Rate 137.4 mL/min (90-130); Glucose 247 mg/dL (65-115); Osmolality Calculated 285 mOsm/kg (285-295); Potassium 3.4 mmol/L (3.5-5.1); Sodium 132 mmol/L (136-145); Total Bilirubin 0.3 mg/dL (0.15-1.2); Total Protein 6.9 g/dL (6.6-8.7)
[2021-10-27] MEDS: iohexol 350 mg/mL 100 mL Btl IV (14:13)
== END 2021-10-27 15:41 | disposition home or self-care (01) ==
PROVIDERS: Emergency Provider Family Medicine; PCP Registered Nurse
DX: Z48.00 Encounter for change or removal of nonsurgical wound dressing (principal); Z79.84 Long term (current) use of oral hypoglycemic drugs; J44.9 Chronic obstructive pulmonary disease, unspecified; E11.9 Type 2 diabetes mellitus without complications; I25.2 Old myocardial infarction; F17.210 Nicotine dependence, cigarettes, uncomplicated
CPT/HCPCS: 72132; 80053; 85025; 86140; 99283; Q9967